=== PATIENT | male | born 1935 | race Caucasian/White ===

== ENCOUNTER 2017-12-24 10:30 | Observation (INO) ==
--- NOTE | 2017-12-24 11:04 | Emergency Department Note ---
Disposition Clinical Impression: Hypoglycemia Pneumonia Qualifiers: Pneumonia type: due to unspecified organism Laterality: bilateral Lung location : lower lobe of lung Qualified Code(s): J18.9 - Pneumonia, unspecified organism Disposition: Admitted As Inpatient Condition: Good Time of Disposition: 12:49 General Adult HPI - General Chief complaint: ED Altered Mental Status Stated complaint: hypoglycemia Time Seen by Provider: 12/24/17 10:32 Source: patient, EMS Mode of arrival: EMS Limitations: no limitations Nursing Notes Reviewed: Yes Vital Signs Reviewed: Yes - History of Present Illness HPI Narrative: Patient is an 82-year-old male that presents to the emergency department for hypoglycemia. He states that he was at home and is blood glucose was 38. EMS states that family members called due to the patient becoming agitated and somewhat aggressive towards them and members. State that when they arrived he did not want to take any of the anti-hypoglycemic medications. There were eventually able to give him some oral glucose as well as glucagon. They stated that his blood glucose did not initially go up very much however after getting him into the squad his blood glucose was around 120 to 130 and they felt that it was best for him to still come to the emergency department. At this time patient states that he feels like he is back to his baseline and has no chest pain, shortness of breath, abdominal pain, numbness weakness or tingling. Pain Scale: 0 - Related Data Previous Rx's Medication Instructions Recorded Ciprofloxacin OPTH Soln [Ciloxan 2 drop BOTH EYES Q4HR #1 bottle 11/19/17 OPTH Soln] Allergies Allergy/AdvReac Type Severity Reaction Status Date / Time clopidogrel [From Plavix] Allergy See Verified 10/17/16 03:43 Comments phenobarbital Allergy See Verified 10/17/16 03:43 Comments Past Medical History - Past Medical History Medical history: Reports: CHF, coronary artery disease, DVT, diabetes, hyperlipidemia, hypertension, myocardial infarction, peripheral artery disease, renal disease Surgical history: Reports: angioplasty/stent, appendectomy, cholecystectomy, hip replacement, orthopedic, other Psychiatric history: Reports: anxiety, depression - Social History Smoking Status: Never smoker Smokeless Tobacco Status: Yes Alcohol use: Reports: none Drug use: Reports: none Physical Exam - General Limitations: no limitations General appearance: alert Course Vital Signs Temperature 97.6 F 12/24/17 10:33 Pulse Rate 80 12/24/17 10:33 Respiratory Rate 16 12/24/17 10:33 Blood Pressure 128/74 12/24/17 10:33 O2 Sat by Pulse Oximetry 96 12/24/17 10:33 Temperature 97.6 F 12/24/17 10:33 Pulse Rate 82 12/24/17 12:15 Respiratory Rate 16 12/24/17 12:15 Blood Pressure 127/87 12/24/17 12:15 O2 Sat by Pulse Oximetry 96 12/24/17 12:15 Oxygen Delivery Oxygen Delivery Room Air Medical Decision Making - MDM Narrative Medical decision making narrative: We have obtained a CBC, BMP, chest x-ray and and a repeat blood glucose. The patient's repeat blood glucose was 125. Emergency department. The patient does have a possible pneumonia on chest x-ray. The patient will be started on Levaquin and need to be admitted to the hospital. The patient had an elevated white blood cell count of 11.3. Patient did have a wound that is healing on his right lower extremity. This does not appear to be infected at this time. The patient will need to be admitted to the hospital for further evaluation and management of his pneumonia. The patient's hypoglycemia has resolved. The emergency department. There is no evidence of infection on urinalysis at this time. I called and spoke with the hospitalist and they have accepted the patient to their service. The patient will be admitted at this time. - Medical Records Medical records reviewed: Yes I reviewed the patient's medical records. - Lab Data Lab results reviewed: Yes I reviewed the patient's lab results. Result diagrams: 12/24/17 11:12 12/24/17 11:12 Lab Results 12/24/17 12/24/17 12/24/17 Range/Units 10:34 11:12 11:12 WBC 11.3 H (4.3-11.1) K/mcL RBC 4.37 (4.19-5.50) M/mcL Hgb 11.4 L (12.9-16.9) g/dL Hct 37.0 L (37.5-50.1) % MCV 84.7 (83.0-100.0) fL MCH 26.1 L (28.0-33.3) pg MCHC 30.8 L (31.6-35.5) g/dL RDW 21.7 H (11.5-14.5) % Plt Count 273 (140-400) K/mcL MPV 9.6 (9.4-12.4) fL Immature Gran % 0.3 (0-4) % Seg Neutrophils % 75.5 % Lymphocytes % 14.1 % Monocytes % 7.5 % Eosinophils % 2.2 % Basophils % 0.4 % Neutrophils # 8.5 (1.6-8.9) K/mcL Lymphocytes # 1.6 (0.6-4.6) K/mcL Monocytes # 0.9 (0.0-1.3) K/mcL Eosinophils # 0.3 (0.0-0.6) K/mcL Basophils # 0.0 (0.0-0.2) K/mcL Immature Plt Fraction 3.4 (1.1-6.1) % Sodium 135 L (136-145) mEq/L Potassium 3.9 (3.5-5.1) mEq/L Chloride 101 (98-107) mEq/L Carbon Dioxide 30 H (23-29) mEq/L BUN 24 H (8-23) mg/dL Creatinine 1.33 H (0.70-1.30) mg/dL Est GFR ( Amer) > 60 (> 60) Est GFR (Non-Af Amer) 51 L (> 60) BUN/Creatinine Ratio 18 (6-26) Glucose 167 H (70-105) mg/dL POC Glucose 125 H (58-89) Calculated Osmolality 288 (280-300) Calcium 8.4 L (8.6-10.3) mg/dL Urine Color (Yellow) Urine Clarity (Clear) Urine pH (5.0-8.0) pH Units Ur Specific [place] (1.010-1.025) Urine Protein (Neg-Trace) mg/dL Urine Glucose (UA) (Normal) mg/dL Urine Ketones (Negative) mg/dL Urine Blood (Negative) Urine Nitrite (Negative) Urine Bilirubin (Negative) Urine Urobilinogen (Normal) mg/dL Ur Leukocyte Esterase (Negative) Ur Culture Indicated? (NO) 12/24/17 Range/Units 11:58 WBC (4.3-11.1) K/mcL RBC (4.19-5.50) M/mcL Hgb (12.9-16.9) g/dL Hct (37.5-50.1) % MCV (83.0-100.0) fL MCH (28.0-33.3) pg MCHC (31.6-35.5) g/dL RDW (11.5-14.5) % Plt Count (140-400) K/mcL MPV (9.4-12.4) fL Immature Gran % (0-4) % Seg Neutrophils % % Lymphocytes % % Monocytes % % Eosinophils % % Basophils % % Neutrophils # (1.6-8.9) K/mcL Lymphocytes # (0.6-4.6) K/mcL Monocytes # (0.0-1.3) K/mcL Eosinophils # (0.0-0.6) K/mcL Basophils # (0.0-0.2) K/mcL Immature Plt Fraction (1.1-6.1) % Sodium (136-145) mEq/L Potassium (3.5-5.1) mEq/L Chloride (98-107) mEq/L Carbon Dioxide (23-29) mEq/L BUN (8-23) mg/dL Creatinine (0.70-1.30) mg/dL Est GFR ( Amer) (> 60) Est GFR (Non-Af Amer) (> 60) BUN/Creatinine Ratio (6-26) Glucose (70-105) mg/dL POC Glucose (58-89) Calculated Osmolality (280-300) Calcium (8.6-10.3) mg/dL Urine Color Yellow (Yellow) Urine Clarity Clear (Clear) Urine pH 6.5 (5.0-8.0) pH Units Ur Specific [place] 1.014 (1.010-1.025) Urine Protein Negative (Neg-Trace) mg/dL Urine Glucose (UA) Normal (Normal) mg/dL Urine Ketones Negative (Negative) mg/dL Urine Blood Negative (Negative) Urine Nitrite Negative (Negative) Urine Bilirubin Negative (Negative) Urine Urobilinogen Normal (Normal) mg/dL Ur Leukocyte Esterase Negative (Negative) Ur Culture Indicated? NO (NO) - Radiology Data Radiology results reviewed: Yes I reviewed the patient's radiology results. Chest X-Ray 12/24/17 11:05 IMPRESSION: 1. Interval appearance of bibasilar opacities and small right effusion. Differential considerations include atelectasis or infection. D/ / Lila Rojas MD / Lila Rojas MD Interpreting Provider: Lila Rojas MD Attestation Statement - Attestation Attestation: I, Lexa Gonzalez DO, examined this patient [id number] and my medical decision-making was reviewed with Dr. Jhon Townsend, Resident Physician. I agree with the documented findings, disposition and treatment plan as described except to the extent set forth below. Please see my progress notes for details. 82-year-old male presents to the emergency room with complaint of hypoglycemia. Patient has had a cough and congestion over the last week. Currently is denying any chest pain shortness of breath headache vision changes nausea vomiting or diarrhea. Denies any any use of his insulin medication this morning. He did not check his glucose prior to getting out. Patient did not eat. Patient was given glucagon and dextrose in transit by EMS and his arrival blood glucose is 139. Patient is mentating at this time. Actively he is denying any other symptoms or complaints. Lungs sound clear at this point heart is regular abdomen is soft. He does have a healing wound on his right medial aspect of the calf. The patient has no other complaints or symptoms this time for screening laboratory chest x-ray CBC chemistry and urinalysis along with influenza swab. These are all negative patient will be allowed and then disposition will most likely be home. Patient is stable resting comfortably in the bed. Disposition to be determined. See detailed documentation of the physical exam, medical intervention, medical decision- making and disposition in the resident physician's note. 1250 Patient found to have bilateral pleural effusions and possible infiltrate. Antibiotic regimen will be started. This could be exacerbating issue causing his hypoglycemia has morning. Patient has been describing a cough with productive sputum. Patient will be admitted for symptom control cholesterol and the most likely discharged home with recommendation for antibiotics and symptomatic control. Conversation was had with the hospitalist by the Resident physician. Patient stable at the time of admission. no critical care was applied to this treatment course
[2017-12-24 11:18] LABS: Basophils % 0.4 %; Eosinophils # 0.3 K/mcL (0.0-0.6); Eosinophils % 2.2 %; Hemoglobin 11.4 g/dL (12.9-16.9); Immature Granulocytes % 0.3 % (0-4); Immature Platelets 3.4 % (1.1-6.1); Lymphocytes # 1.6 K/mcL (0.6-4.6); Lymphocytes % 14.1 %; Mean Corpuscular HGB Conc 30.8 g/dL (31.6-35.5); Mean Corpuscular Hemoglobin 26.1 pg (28.0-33.3); Mean Corpuscular Volume 84.7 fL (83.0-100.0); Mean Platelet Volume 9.6 fL (9.4-12.4); Monocytes # 0.9 K/mcL (0.0-1.3); Monocytes % 7.5 %; Neutrophils # 8.5 K/mcL (1.6-8.9); Platelet Count 273 K/mcL (140-400); Red Blood Count 4.37 M/mcL (4.19-5.50); Red Cell Distribution Width 21.7 % (11.5-14.5); Segmented Neutrophils % 75.5 %
[2017-12-24 11:39] LABS: BUN/Creatinine Ratio 18 (6-26); Blood Urea Nitrogen 24 mg/dL (8-23); Calcium 8.4 mg/dL (8.6-10.3); Carbon Dioxide 30 mEq/L (23-29); Chloride 101 mEq/L (98-107); Glucose 167 mg/dL (70-105); Osmolality,Calculated 288 (280-300); Potassium 3.9 mEq/L (3.5-5.1); Sodium 135 mEq/L (136-145); eGFR For African Americans > 60 (> 60); eGFR For Non-African Americans 51 (> 60)
[2017-12-24 12:07] LABS: Bilirubin,Urine Negative (Negative); Blood,Urine Negative (Negative); Clarity,Urine Clear (Clear); Color,Urine Yellow (Yellow); Glucose,Urine (UA) Normal (Normal); Ketones,Urine Negative (Negative); Leukocyte Esterase,Urine Negative (Negative); Nitrite,Urine Negative (Negative); PH,Urine 6.5 pH Units (5.0-8.0); Protein,Urine Negative (Neg-Trace); Specific Gravity,Urine 1.014 (1.010-1.025); Urobilinogen,Urine Normal (Normal)
[2017-12-24] MEDS ORDERED: Levofloxacin 750 MG/150 ML 750 MG/150 ML BAG IVPB ONE (12:18)
[2017-12-24] MEDS ORDERED: traMADol 50 MG TABLET PO PRN (13:22)
[2017-12-24] MEDS ORDERED: Naloxone 0.4 MG/ML INJ IVP PRN (13:24)
[2017-12-24] MEDS ORDERED: Dextrose Gel 15 GM/37.5 ML TUBE PO PRN ×2 (13:25)
[2017-12-24] MEDS ORDERED: *HR* Dextrose 50 % in Water (Syg) 50 ML SYRINGE IVP PRN (13:25)
[2017-12-24] MEDS ORDERED: D5% in Water 1,000 ML IVC PRN (13:25)
--- NOTE | 2017-12-24 13:29 | Internal Med History&Physical ---
<Vance Langley J - Last Filed: 12/24/17 13:27> Date of Encounter: 12/24/17 Time of Encounter: 13:27 Assessment and Plan (1) Pneumonia Current visit: Yes Status: Acute ASSESSMENT: - Community aquired PNA. Productive cough throughout the last week, PNA on CXR with bibasilar airspace opacities. Low risk for aspiration, eating during examination without difficulty. No respiratory distress noted - Antibiotics, Levaquin - CBC, BMP in AM - Duonebs Q4h vic - Heparin 5000 U SQ BID - Respiratory support per NC PRN, stable on RA at this time - Continuous Spo2 monitoring Qualifiers: Pneumonia type: due to unspecified organism Laterality: bilateral Lung location: lower lobe of lung Qualified Code(s): J18.9 - Pneumonia, unspecified organism (2) Hypoglycemia Current visit: Yes Status: Resolved Resolved prior to arrival. He does not know his insulin dosages and appears to have educational deficits of his dose and insulin use. -Consult educator senior clinical -diabetic diet (3) HLD (hyperlipidemia) Current visit: Yes Status: Acute Continue statin Qualifiers: Hyperlipidemia type: unspecified Qualified Code(s): E78.5 - Hyperlipidemia , unspecified (4) CAD (coronary artery disease) Current visit: Yes Status: Acute Continue ASA, statin, eliquis Qualifiers: Qualified Code(s): I25.10 - Atherosclerotic heart disease of [place] coronary artery without angina pectoris (5) DM (diabetes mellitus) Current visit: Yes Status: Acute Sliding scale insulin coverage Qualifiers: Diabetes mellitus type: type 2 Diabetes mellitus complication status: with unspecified complications Diabetes mellitus custodial insulin use: with custodial use Qualified Code(s): E11.8 - Type 2 diabetes mellitus with unspecified complications; Z79.4 - jail (current) use of insulin; 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 Salas is a 82 year old male with a PMH of CHF, CAD, DVT, DM, HLD, HTN, ND, PAD, and CKD who presents to [facility] today with following an episode of hypoglycemia this morning. He reports that his family noticed that he was agitated. His glucose was checked and found to be 38. He was given glucose an EMS was called and brought him to the ED. His glucose was 167 per BMP. Incidental PNA was found on CXR. He does endorse a cough productive of clear sputum over the last week. He denies any fevers, chills, shortness of breath, CP, N/V/D, or abdominal pain. He is being admitted for closer monitoring of his blood glucose and for IV ATB treatment of PNA. Past Med Surg Social Fam HX - Past Medical History Medical history: CHF, coronary artery disease, DVT, diabetes, hyperlipidemia, hypertension, myocardial infarction, peripheral artery disease, renal disease Psychiatric history: anxiety, depression - Past Surgical History Surgical History: angioplasty/stent, appendectomy, cholecystectomy, hip replacement, orthopedic, other - Social History Smoking Status: Never smoker Smokeless Tobacco Status: Yes Alcohol use: none Drug use: none - Additional Family History Additional family history: noncontributory Internal Medicine - H&P: Meds Apixaban [Eliquis] 5 mg PO DAILY 12/24/17 [History] Aspirin [Lo-Dose Aspirin EC] 81 mg PO DAILY 12/24/17 [History] Carvedilol [Carvedilol] 3.125 mg PO BID 12/24/17 [History] Citalopram [CeleXA] 20 mg PO DAILY 12/24/17 [History] Ferrous Sulfate [Iron] 325 mg PO DAILY 12/24/17 [History] Finasteride [Proscar] 5 mg PO DAILY 12/24/17 [History] Furosemide [Lasix] 40 mg PO BID 12/24/17 [History] Insulin LISPRO [HumaLOG] 12/24/17 [History] Simvastatin [Zocor] 40 mg PO HS 12/24/17 [History] Tamsulosin [Flomax] 0.4 mg PO DAILY 12/24/17 [History] Tramadol HCl [Ultram] 50 mg PO BID PRN 12/24/17 [History] 3 Allergy/AdvReac Type Severity Reaction Status Date / Time clopidogrel [From Plavix] Allergy See Verified 10/17/16 03:43 Comments phenobarbital Allergy See Verified 10/17/16 03:43 Comments All Systems PM: A 10-system review of systems was performed and is negative for pertinent findings except as documented above in the HPI. - Constitutional Constitutional: no chills, no fever(s), no night sweats - EENT Eyes: no change in vision, no discharge, no pain, no photophobia Ears: no ear discharge, no ear pain, no tinnitus Nose, mouth and throat: no dysphagia, no nasal discharge, no neck pain, no sore throat - Cardiovascular Cardiovascular ROS IM: no chest pain, no diaphoresis, no dyspnea, no lightheadedness, no palpitations, no syncope - Respiratory Respiratory: as per HPI, cough, no dyspnea, no hemoptysis, no wheezing, no pain on inspiration, no chest congestion, no excessive phlegm production, no change in phlegm color, no pain with cough - Gastrointestinal Gastrointestinal: no abdominal pain, no diarrhea, no hematemesis, no hematochezia, no melena, no nausea, no vomiting - Musculoskeletal Musculoskeletal ROS IM: no numbness, no tingling - Integumentary Integumentary IM: no rash, no unusual bruising - Neurological Neurological ROS: no confusion, no convulsions, no focal weakness, no numbness, no tingling, no tremor(s) - Hematologic/Lymphatic Hematologic/Lymphatic: no easy bruising - Constitutional Vitals: Temp Pulse Resp BP Pulse Ox 97.6 F 82 16 127/87 96 12/24/17 10:33 12/24/17 12:15 12/24/17 12:15 12/24/17 12:15 12/24/17 12:15 General appearance: Present: cooperative, A&O X 3, no acute distress, answers questions appropriately - Head Head exam: Present: atraumatic, normocephalic - Eye Eye exam: Present: PERRL, conjuntiva pink, sclera anicteric Pupils: Present: PERRL - Neck Neck exam general surgery: Present: supple, trachea midline. Absent: lymphadenopathy - Respiratory Respiratory exam: Present: CTAB, rhonchi. Absent: accessory muscle use, rales, wheezes - Cardiovascular Cardiovascular exam: Present: RRR, +S1, +S2. Absent: diastolic murmur, gallop, rubs, systolic murmur - GI/Abdominal GI/Abdominal exam: Present: normal bowel sounds, soft, no peritoneal signs. Absent: distended, tenderness - Extremities Exam Extremities exam: Present: warm, radial pulses palpable and symmetrical. Absent : calf tenderness, cyanotic, pedal edema - Neurological Exam Neurological exam: Present: CN II-XII intact, oriented X3, no focal deficits. Absent: pronater drift, facial droop, speech deficit - Skin Skin exam: Present: dry, intact Internal Med - H&P Results - Labs CBC & Chem 7: 12/24/17 11:12 12/24/17 11:12 - Impressions Impressions Chest X-Ray 12/24/17 11:05 IMPRESSION: 1. Interval appearance of bibasilar opacities and small right effusion. Differential considerations include atelectasis or infection. D/ / 12/24/2017 12:30:27 Lila Rojas MD / [email or web address] Interpreting Provider: Lila Rojas MD <Masoud Ramirez T - Last Filed: 12/25/17 07:57> Date of Encounter: 12/25/17 Internal Medicine - H&P: HPI History of present illness: Mr. Salas is a 82 year old male All Systems PM: A 10-system review of systems was performed and is negative for pertinent findings except as documented above in the HPI. - Constitutional Vitals: Temp Pulse Resp BP Pulse Ox 98.9 F 77 16 134/62 97 12/25/17 06:49 12/25/17 06:49 12/25/17 06:49 12/25/17 06:49 12/25/17 06:49 Internal Med - H&P Results - Labs CBC & Chem 7: 12/25/17 06:25 12/25/17 06:25 Labs: Short CBC 12/25/17 Range/Units 06:25 WBC 6.8 (4.3-11.1) K/mcL Hgb 11.9 L (12.9-16.9) g/dL Hct 38.2 (37.5-50.1) % Plt Count 283 (140-400) K/mcL BMP 12/25/17 06:25 Sodium 136 Potassium 3.9 Chloride 101 Carbon Dioxide 30 H BUN 23 Creatinine 1.24 Glucose 69 L Calcium 9.1 - Attending Attestation The patient was independently examined and his available records and tests were reviewed. I agree with the route carrier A&P. 82 yr old man admitted for hypglycemia and during routine ER w/u found to have infiltrate vs atelectasis on CXR. Lungs clear and not sob nor requiring supplemental O2. Nl WBC and afebrile. The patient doubtful he has PNA and so am I. He need Diabetic mgt education but likely can go home after that with or w/o PO antibiotics.
[2017-12-24] MEDS: Ipratropium/Albuterol Neb 3 ML IH SCH ×3 (16:32→23:47)
[2017-12-24] MEDS: Insulin LISPRO 300 UNITS/3 ML VIAL SQ SCH ×2 (16:57→21:09)
[2017-12-24] MEDS ORDERED: *HR* Heparin 5,000 UNIT/ML VIAL SQ SCH (18:00)
[2017-12-24] MEDS: Furosemide 40 MG TABLET PO SCH (20:38)
[2017-12-25] MEDS: Ipratropium/Albuterol Neb 3 ML IH SCH ×6 (04:07→23:19)
[2017-12-25 06:44] LABS: Hematocrit 38.2 % (37.5-50.1); Hemoglobin 11.9 g/dL (12.9-16.9); Mean Corpuscular HGB Conc 31.2 g/dL (31.6-35.5); Mean Corpuscular Hemoglobin 26.1 pg (28.0-33.3); Mean Corpuscular Volume 83.8 fL (83.0-100.0); Mean Platelet Volume 9.9 fL (9.4-12.4); Platelet Count 283 K/mcL (140-400); Red Blood Count 4.56 M/mcL (4.19-5.50); Red Cell Distribution Width 21.6 % (11.5-14.5)
[2017-12-25 07:08] LABS: BUN/Creatinine Ratio 19 (6-26); Blood Urea Nitrogen 23 mg/dL (8-23); Calcium 9.1 mg/dL (8.6-10.3); Carbon Dioxide 30 mEq/L (23-29); Chloride 101 mEq/L (98-107); Glucose 69 mg/dL (70-105); Osmolality,Calculated 284 (280-300); Potassium 3.9 mEq/L (3.5-5.1); Sodium 136 mEq/L (136-145); eGFR For African Americans > 60 (> 60); eGFR For Non-African Americans 56 (> 60)
[2017-12-25] MEDS: Insulin LISPRO 300 UNITS/3 ML VIAL SQ SCH ×4 (08:25→21:48)
[2017-12-25] MEDS ORDERED: Levofloxacin 750 MG/150 ML 750 MG/150 ML BAG IVPB SCH (09:00)
[2017-12-25] MEDS: Finasteride 5 MG TABLET PO SCH (09:18)
[2017-12-25] MEDS: Furosemide 40 MG TABLET PO SCH ×2 (09:18→21:48)
[2017-12-25] MEDS: Aspirin Enteric Coated 81 MG Tablet PO SCH (09:18)
[2017-12-25] MEDS: Apixaban 5 MG TABLET PO SCH (09:18)
--- NOTE | 2017-12-25 11:38 | Internal Med Progress Note ---
Date of Encounter: 12/25/17 Time of Encounter: 09:15 - Subjective Interval history: HPI: 82 year old man with a PMH of CHF, CAD, DVT, DM, HLD, HTN, [place], PAD, and CKD who presents to [facility] today with following an episode of hypoglycemia this morning. He reports that his family noticed that he was agitated. His glucose was checked and found to be 38. He was given glucose an EMS was called and brought him to the ED. His glucose was 167 per BMP. Incidental PNA was found on CXR. He does endorse a cough productive of clear sputum over the last week. He denies any fevers, chills, shortness of breath, CP, N/V/D, or abdominal pain. He is being admitted for closer monitoring of his blood glucose and for IV ATB treatment of PNA. 1. Influenza A positive: Supportive care Tamiflu started Droplet precautions 2. Community Aquired Pneumonia - Community aquired PNA. Productive cough throughout the last week, PNA on CXR with bibasilar airspace opacities. - Continue Levaquin and Duonebs Q4h vic - Follow B. Cx 3. DM-II on insulin with Hypoglycemia Intermittently not eating likely due to acute illness Also poor insight into DM Consult clinical unit educator SSI with meals and bedtime 4. CAD (coronary artery disease) Continue aspirin, BB, statin - Constitutional Vitals: Temp Pulse Resp BP Pulse Ox 98.5 F 83 14 140/82 97 12/25/17 11:15 12/25/17 11:15 12/25/17 11:29 12/25/17 11:15 12/25/17 11:29 General appearance: Present: cooperative, A&O X 3, no acute distress, answers questions appropriately - Head Head exam: Present: atraumatic, normocephalic - Eye Eye exam: Present: EOMI, PERRL, conjuntiva pink, sclera anicteric Pupils: Present: PERRL - Neck Neck exam general surgery: Present: supple, trachea midline. Absent: lymphadenopathy - Respiratory Respiratory exam: Present: CTAB. Absent: accessory muscle use, rales, rhonchi, wheezes - Cardiovascular Cardiovascular exam: Present: RRR, +S1, +S2. Absent: diastolic murmur, gallop, rubs, systolic murmur - GI/Abdominal GI/Abdominal exam: Present: normal bowel sounds, soft, no peritoneal signs. Absent: distended, tenderness - Extremities Exam Extremities exam: Present: warm, radial pulses palpable and symmetrical. Absent : calf tenderness, cyanotic, pedal edema - Neurological Exam Neurological exam: Present: CN II-XII intact, oriented X3, no focal deficits. Absent: pronater drift, facial droop, speech deficit - Skin Skin exam: Present: dry, intact Internal Medicine: Result - Labs CBC & Chem 7: 12/25/17 06:25 12/25/17 06:25 Labs: Short CBC 12/25/17 Range/Units 06:25 WBC 6.8 (4.3-11.1) K/mcL Hgb 11.9 L (12.9-16.9) g/dL Hct 38.2 (37.5-50.1) % Plt Count 283 (140-400) K/mcL BMP 12/25/17 06:25 Sodium 136 Potassium 3.9 Chloride 101 Carbon Dioxide 30 H BUN 23 Creatinine 1.24 Glucose 69 L Calcium 9.1 Consult Discharge Plan - Plan Referrals: Philip Tillman MD [Primary Care Provider] -
[2017-12-26] MEDS: Ipratropium/Albuterol Neb 3 ML IH SCH ×3 (03:50→12:09)
--- NOTE | 2017-12-26 09:08 | Internal Med Progress Note ---
Date of Encounter: 12/26/17 Time of Encounter: 09:07 - Assessment and plan (1) Community acquired bacterial pneumonia Current Visit: Yes Status: Acute Assessment and plan: PNA on CXR with bibasilar airspace opacities. Low risk for aspiration, eating during examination without difficulty. No respiratory distress noted White count was initially elevated at 11.3, has since decreased to 6.8. Plan: - Levaquin 750 mg IV daily - Duonebs Q4h vic - Continuous Spo2 monitoring (2) DM (diabetes mellitus) Current Visit: No Status: Acute Assessment and plan: Sliding scale insulin coverage -Glucose this morning was 213. Plan: -HbA1C had been ordered -ADA Diet Qualifiers: Diabetes mellitus type: type 2 Diabetes mellitus complication status: with unspecified complications Diabetes mellitus long term care phlebotomist insulin use: with fci use Qualified Code(s): E11.8 - Type 2 diabetes mellitus with unspecified complications; Z79.4 - long term care phlebotomist (current) use of insulin; Z79.4 - intermediate ( current) use of insulin; Z79.4 - intermediate (current) use of insulin; Z79.4 - intermediate (current) use of insulin (3) CAD (coronary artery disease) Current Visit: No Status: Acute Qualifiers: Qualified Code(s): I25.10 - Atherosclerotic heart disease of [place] coronary artery without angina pectoris (4) HTN (hypertension) Current Visit: No Status: Acute (5) DVT prophylaxis Current Visit: No Status: Acute - Subjective Interval history: Patient is an 82-year-old male with a PMH of CHF, coronary artery disease, DVT, diabetes, hyperlipidemia, hypertension, myocardial infarction, peripheral artery disease, renal disease who presented to the ED on 12/24/17 for hypoglycemia. He states that he was at home and is blood glucose was 38. EMS states that family members called due to the patient becoming agitated and somewhat aggressive towards them and members. Stated that when they arrived he did not want to take any of the anti-hypoglycemic medications. There were eventually able to give him some oral glucose as well as glucagon. They stated that his blood glucose did not initially go up very much however after getting him into the squad his blood glucose was around 120 to 130 and they felt that it was best for him to still come to the emergency department. At this time patient states that he feels like he is back to his baseline and has no chest pain, shortness of breath, abdominal pain, numbness weakness or tingling. Upon arrival, all vital signs were within normal limits. CXR demonstrated the following: Interval appearance of bibasilar opacities and small right effusion. The patient's repeat blood glucose was 125. Patient was started on levaquin. White count was elevated at 11.3. Patient did have a wound that is healing on his right lower extremity; did not appear to be infected. There is no evidence of infection on urinalysis at this time. - Constitutional Vitals: Temp Pulse Resp BP Pulse Ox 98.3 F 81 16 114/68 93 12/26/17 08:24 12/26/17 08:24 12/26/17 08:24 12/26/17 08:24 12/26/17 08:24 General appearance: Present: cooperative, A&O X 3, no acute distress, answers questions appropriately - Head Head exam: Present: atraumatic, normocephalic - Eye Eye exam: Present: PERRL, conjuntiva pink, sclera anicteric Pupils: Present: PERRL - Neck Neck exam general surgery: Present: supple, trachea midline. Absent: lymphadenopathy - Respiratory Respiratory exam: Present: CTAB. Absent: accessory muscle use, rales, rhonchi, wheezes - Cardiovascular Cardiovascular exam: Present: RRR, +S1, +S2. Absent: diastolic murmur, gallop, rubs, systolic murmur - GI/Abdominal GI/Abdominal exam: Present: normal bowel sounds, soft, no peritoneal signs. Absent: distended, tenderness - Extremities Exam Extremities exam: Present: warm, radial pulses palpable and symmetrical. Absent : calf tenderness, cyanotic, pedal edema - Neurological Exam Neurological exam: Present: CN II-XII intact, oriented X3, no focal deficits. Absent: pronater drift, facial droop, speech deficit - Skin Skin exam: Present: dry, intact Internal Medicine: Result - Labs CBC & Chem 7: 12/25/17 06:25 12/25/17 06:25 Consult Discharge Plan - Plan Referrals: Philip Tillman MD [Primary Care Provider] -
[2017-12-26] MEDS: Apixaban 5 MG TABLET PO SCH (09:09)
[2017-12-26] MEDS: Finasteride 5 MG TABLET PO SCH (09:09)
[2017-12-26] MEDS: Aspirin Enteric Coated 81 MG Tablet PO SCH (09:09)
[2017-12-26] MEDS: Furosemide 40 MG TABLET PO SCH (09:09)
[2017-12-26] MEDS: Insulin LISPRO 300 UNITS/3 ML VIAL SQ SCH ×2 (09:10→13:49)
[2017-12-26 09:42] LABS: Hemoglobin A1C 7.8 %
[2017-12-26 13:05] VITALS: BP 100/59
--- NOTE | 2017-12-26 14:31 | Discharge Summary ---
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 drier operator (current) use of insulin; Z79.4 - buttermilk drier operator ( current) use of insulin; Z79.4 - buttermilk drier operator (current) use of insulin; Z79.4 - long-term (current) use of insulin (3) CAD (coronary artery disease) Priority: Secondary Status: Acute Qualifiers: Qualified Code(s): I25.10 - Atherosclerotic heart disease of [place] coronary artery without angina pectoris (4) HTN (hypertension) Priority: Secondary Status: Acute Qualifiers: Qualified Code(s): I10 - Essential (primary) hypertension (5) DVT prophylaxis Priority: Secondary Status: Acute - Discharge Medications Prescriptions: Levofloxacin [Levaquin] 750 mg PO Q48H #5 tablet Home Medications: Apixaban [Eliquis] 5 mg PO BID 12/24/17 [History] Aspirin [Lo-Dose Aspirin EC] 81 mg PO DAILY 12/24/17 [History] Carvedilol [Carvedilol] 3.125 mg PO BID 12/24/17 [History] Citalopram [CeleXA] 20 mg PO DAILY 12/24/17 [History] Ferrous Sulfate [Iron] 325 mg PO DAILY 12/24/17 [History] Finasteride [Proscar] 5 mg PO DAILY 12/24/17 [History] Furosemide [Lasix] 40 mg PO BID 12/24/17 [History] Insulin LISPRO [HumaLOG] 8 units SQ TIDAC 12/24/17 [History] Simvastatin [Zocor] 40 mg PO HS 12/24/17 [History] Tamsulosin [Flomax] 0.4 mg PO DAILY 12/24/17 [History] Tramadol HCl [Ultram] 50 mg PO BID PRN 12/24/17 [History] Insulin Glargine,Hum.rec.anlog [Deannaglsoy Singhpen U-100] 22 unit SQ BID 12/26/17 [History] Levofloxacin [Levaquin] 750 mg PO Q48H #5 tablet 12/26/17 [Rx] Allergies/Adverse Reactions: 3 Allergy/AdvReac Type Severity Reaction Status Date / Time clopidogrel [From Plavix] Allergy See Verified 10/17/16 03:43 Comments phenobarbital Allergy See Verified 10/17/16 03:43 Comments Date of admission: 12/24/17 12:45 Primary care physician: Philip Tillman MD Consults: 12/24/17 13:41 Consult to Diabetes Education [CONS] Routine Comment: Reason for Consult: eductional deficits of insulin dosage and appropriate usage 12/25/17 14:48 Consult to Physical Therapy [CONS] Routine Comment: Evaluate, develop and implement POC Reason for Consult: ECF vs HH 12/25/17 14:49 Consult to Occupational Therapy [CONS] Routine Comment: Evaluate, develop and implement POC Reason for Consult: ECF vs HH Discharging clinician: Last Yates Anticipated date of discharge: 12/26/17 - Patient Status Disposition: Home, Self-Care Condition: Good Overall status at discharge: patient is progressing back to baseline - Discharge Instructions Instructions: Diabetes Mellitus Type 2 in Adults (DC) Follow Up With: Philip Tillman MD [Primary Care Provider] - 12/28/17 10:15 am Additional Instructions: Follow up with PCP within the next week - Diet and Activity Activity: increase activity as tolerated Diet: advance to your usual diet Hospital course: Patient is an 82-year-old male with a PMH of CHF, coronary artery disease, DVT, diabetes, hyperlipidemia, hypertension, myocardial infarction, peripheral artery disease, renal disease who presented to the ED on 12/24/17 for hypoglycemia. He states that he was at home and is blood glucose was 38. EMS states that family members called due to the patient becoming agitated and somewhat aggressive towards them and members. Stated that when they arrived he did not want to take any of the anti-hypoglycemic medications. There were eventually able to give him some oral glucose as well as glucagon. They stated that his blood glucose did not initially go up very much however after getting him into the squad his blood glucose was around 120 to 130 and they felt that it was best for him to still come to the emergency department. At this time patient states that he feels like he is back to his baseline and has no chest pain, shortness of breath, abdominal pain, numbness weakness or tingling. Upon arrival, all vital signs were within normal limits. CXR demonstrated the following: Interval appearance of bibasilar opacities and small right effusion. The patient's repeat blood glucose was 125. Patient was started on levaquin. White count was elevated at 11.3. Patient did have a wound that is healing on his right lower extremity; did not appear to be infected. Patient was seen and examined at bedside this morning. Denies having cough or shortness of breath. Patient has no complaints at this time. Patient will be discharged on Levaquin for 5 more days, q48 hours. He will also follow up with his PCP within the next week. - Time Spent with Patient Total time spent providing and/or coordinating discharge services: Greater than 30 minutes (41 minutes) - Constitutional Vitals: Temp Pulse Resp BP Pulse Ox 97.6 F 93 16 100/59 97 12/26/17 12:10 12/26/17 12:10 12/26/17 12:10 12/26/17 12:10 12/26/17 12:10 General appearance: Present: cooperative, A&O X 3, no acute distress, answers questions appropriately - Head Head exam: Present: atraumatic, normocephalic - Eye Eye exam: Present: PERRL, conjuntiva pink, sclera anicteric Pupils: Present: PERRL - Neck Neck exam general surgery: Present: supple, trachea midline. Absent: lymphadenopathy - Respiratory Respiratory exam: Present: CTAB. Absent: accessory muscle use, rales, rhonchi, wheezes - Cardiovascular Cardiovascular exam: Present: RRR, +S1, +S2. Absent: diastolic murmur, gallop, rubs, systolic murmur - Neurological Exam Neurological exam: Present: CN II-XII intact, oriented X3, no focal deficits. Absent: pronater drift, facial droop, speech deficit - Skin Skin exam: Present: dry, intact <Laron Patel T - Last Filed: 12/26/17 15:17> Date of Encounter: 12/26/17 - Discharge Diagnosis (1) CHF (congestive heart failure) Priority: Secondary Status: Chronic Qualifiers: Heart failure type: systolic Heart failure chronicity: chronic Qualified Code(s): I50.22 - Chronic systolic (congestive) heart failure Date of admission: 12/24/17 12:45 Primary care physician: Philip Tillman MD Consults: 12/24/17 13:41 Consult to Diabetes Education [CONS] Routine Comment: Reason for Consult: eductional deficits of insulin dosage and appropriate usage 12/25/17 14:48 Consult to Physical Therapy [CONS] Routine Comment: Evaluate, develop and implement POC Reason for Consult: ECF vs HH 12/25/17 14:49 Consult to Occupational Therapy [CONS] Routine Comment: Evaluate, develop and implement POC Reason for Consult: ECF vs HH Hospital course: Mr. Salas is a 82 year old male - Time Spent with Patient Total time spent providing and/or coordinating discharge services: - Constitutional Vitals: Temp Pulse Resp BP Pulse Ox 97.6 F 93 16 100/59 97 12/26/17 12:10 12/26/17 12:10 12/26/17 12:10 12/26/17 12:10 12/26/17 12:10 - Attending Attestation Seen and evaluated at bedside Being managed for hypoglycemia and pneumonia Physical exam is unremarkable he is alert X3, chronic leg mck[place] wounds that are healed, patient states he is wheel chair bound Labs and Imaing reviewed He is at a higher risk of hypoglycemia hold insulin till PCP review, resume other home meds and discharge on levaquin. Early PCP appointment to be established Rest of details as in the resident physician's documentation
--- NOTE | 2017-12-26 15:06 | Physician Discharge Referral ---
Home Health/Hosp Referral Info Transfer to: Home Health Provider in Charge Post Discharge: PCP - Diagnosis (1) Community acquired bacterial pneumonia Priority: Primary Status: Acute (2) DM (diabetes mellitus) Priority: Secondary Status: Acute (3) CAD (coronary artery disease) Priority: Secondary Status: Acute (4) HTN (hypertension) Priority: Secondary Status: Acute (5) DVT prophylaxis Priority: Secondary Status: Acute - Respiratory Orders Smoking Cessation: Smoking cessation has been advised. For more information, call the [place] Tobacco Quit Line at 8-439-RCRY-NOW. - Diet/Nutrition Diet/Nutrition Orders: Regular Other Treatments: Levaquin 750 mg Q48 for the treatment of PNA - Transfer Medications Prescriptions: Levofloxacin [Levaquin] 750 mg PO Q48H #5 tablet Home Medications: Apixaban [Eliquis] 5 mg PO BID 12/24/17 [History] Aspirin [Lo-Dose Aspirin EC] 81 mg PO DAILY 12/24/17 [History] Carvedilol [Carvedilol] 3.125 mg PO BID 12/24/17 [History] Citalopram [CeleXA] 20 mg PO DAILY 12/24/17 [History] Ferrous Sulfate [Iron] 325 mg PO DAILY 12/24/17 [History] Finasteride [Proscar] 5 mg PO DAILY 12/24/17 [History] Furosemide [Lasix] 40 mg PO BID 12/24/17 [History] Insulin LISPRO [HumaLOG] 8 units SQ TIDAC 12/24/17 [History] Simvastatin [Zocor] 40 mg PO HS 12/24/17 [History] Tamsulosin [Flomax] 0.4 mg PO DAILY 12/24/17 [History] Tramadol HCl [Ultram] 50 mg PO BID PRN 12/24/17 [History] Insulin Glargine,Hum.rec.anlog [Basaglar Kwikpen U-100] 22 unit SQ BID 12/26/17 [History] Levofloxacin [Levaquin] 750 mg PO Q48H #5 tablet 12/26/17 [Rx] Allergies/Adverse Reactions: 3 Allergy/AdvReac Type Severity Reaction Status Date / Time clopidogrel [From Plavix] Allergy See Verified 10/17/16 03:43 Comments phenobarbital Allergy See Verified 10/17/16 03:43 Comments Certification: Further, I certify that my clinical findings support that this patient is homebound (i.e. absences from home require considerable and taxing effort and are for medical reasons or christian services or infrequently or short duration when for other reasons) because: Homebound Reason: Patient requires assistance of a person or device to safely leave home Attestation: My signature below is to certify that this patient is under my care and that I, or nurse practitioner, or a physician's assistant chief nursing officer working with me, has a face-to -face encounter with this patient.
[2017-12-26] MEDS ORDERED: Apixaban 5 MG TABLET PO SCH (21:00)
[2017-12-27] MEDS ORDERED: Levofloxacin 750 MG/150 ML 750 MG/150 ML BAG IVPB SCH (09:00)
== END 2017-12-26 15:42 | disposition home health service (06) ==
LOC: EMEROO 10:30 → 2ANU 10:30 → 3ANU 12:54
PROVIDERS: ADMIT Student in an Organized Health Care Education/Training Program; ATTEND Internal Medicine

== ENCOUNTER 2018-03-01 22:18 | Inpatient (IN) ==
[2018-03-01 22:51] LABS: Basophils % 0.2 %; Eosinophils # 0.6 K/mcL (0.0-0.6); Eosinophils % 6.4 %; Hematocrit 32.2 % (37.5-50.1); Hemoglobin 11.1 g/dL (12.9-16.9); Immature Granulocytes % 0.2 % (0-4); Lymphocytes # 1.4 K/mcL (0.6-4.6); Lymphocytes % 15.9 %; Mean Corpuscular HGB Conc 34.5 g/dL (31.6-35.5); Mean Corpuscular Hemoglobin 30.1 pg (28.0-33.3); Mean Corpuscular Volume 87.3 fL (83.0-100.0); Mean Platelet Volume 10.6 fL (9.4-12.4); Monocytes # 0.9 K/mcL (0.0-1.3); Monocytes % 9.8 %; Platelet Count 287 K/mcL (140-400); Red Blood Count 3.69 M/mcL (4.19-5.50); Red Cell Distribution Width 14.2 % (11.5-14.5); Segmented Neutrophils % 67.5 %
[2018-03-01 22:53] LABS: VBG HCO3 26 mEq/L (21-27); VBG PCO2 41 mmHg (41-51); VBG PO2 34 mmHg (25-50)
[2018-03-01 23:11] LABS: Alanine Aminotransferase 12 Units/L (7-52); Albumin 3.8 g/dL (3.5-5.7); Albumin/Globulin Ratio 1.2 (1.1-2.2); Alkaline Phosphatase 90 Units/L (34-104); Aspartate Amino Transferase 11 Units/L (13-39); BUN/Creatinine Ratio 17 (6-26); Bilirubin,Direct 0.3 mg/dL (0.0-0.2); Bilirubin,Indirect 0.8 mg/dL (0.0-1.2); Bilirubin,Total 1.1 mg/dL (0.3-1.0); Blood Urea Nitrogen 26 mg/dL (8-23); Calcium 9.1 mg/dL (8.6-10.3); Carbon Dioxide 24 mEq/L (23-29); Chloride 89 mEq/L (98-107); Globulin 3.3 g/dL (2.4-3.5); Glucose 474 mg/dL (70-105); Magnesium 2.2 mg/dL (1.6-2.6); Osmolality,Calculated 286 (280-300); Phosphorous 2.6 mg/dL (2.7-4.5); Potassium 4.1 mEq/L (3.5-5.1); Sodium 125 mEq/L (136-145); Total Protein 7.1 g/dL (6.4-8.9); Troponin I < 0.03 ng/mL (< 0.04); eGFR For African Americans 52 (> 60); eGFR For Non-African Americans 43 (> 60)
[2018-03-01] MEDS ORDERED: 0.9 % Sodium Chloride 500 ML IVC ONE (23:24)
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
[2018-03-02] MEDS ORDERED: Insulin LISPRO 300 UNITS/3 ML VIAL SQ ONE (00:40)
[2018-03-02 01:06] LABS: Bilirubin,Urine Negative (Negative); Blood,Urine Negative (Negative); Clarity,Urine Clear (Clear); Color,Urine Yellow (Yellow); Glucose,Urine (UA) >=1000 mg/dL (Normal); Ketones,Urine Negative (Negative); Leukocyte Esterase,Urine Negative (Negative); Nitrite,Urine Negative (Negative); PH,Urine 6.5 pH Units (5.0-8.0); Protein,Urine Negative (Neg-Trace); Specific Gravity,Urine 1.024 (1.010-1.025); Urobilinogen,Urine Normal (Normal)
--- NOTE | 2018-03-02 01:07 | Internal Med History&Physical ---
<Last Yates - Last Filed: 03/02/18 03:26> Date of Encounter: 03/02/18 Time of Encounter: 01:06 Internal Medicine - H&P: HPI Chief complaint: Hyperglycemia Admitted From: Home Plans for Post Hospital Care: Home History of present illness: Mr. Salas is an 83-year-old male who presented to [facility] on the evening of 03/01/18 after having outpatient lab work demonstrating a glucose level greater than 800. Patient was accompanied by son. Son stated that patient had not eaten in several days; reporting that his father was not hungry. Patient is a type I diabetic; is on short acting and long acting insulin. Patient has home health services to set up his medications, patient states that he takes his medications as I can. Patient reported that he was not hungry. Patient provided no further history. He denied having any fever, chills, difficulty breathing, shortness of breath cough,, nasal condition, abdominal pain, nausea, vomiting, diarrhea, chest pain, palpitations, edema, genitourinary issues, or other physical complaints. Patient is currently in a walking boot on his right foot. Son reported the patient had a fracture; pending CT. Has had no surgical intervention on his leg. Patient does not recall taking any insulin today. Upon arrival, patients blood pressure was elevated at 154/81. All other vital signs were within normal limits. Laboratory analysis was significant for the following: Sodium 125, B1 26 , creatinine 1.55, glucose 582, lactic acid 3.7, total bilirubin 1.1. In the ER , patient was given a one-time bolus of 500 mL normal saline, 5 units insulin Humalog subcutaneous. EKG has been ordered. Straight catheter ordered. Urinalysis obtained; results pending. Past medical history includes coronary artery disease, DVT, diabetes, hyperlipidemia, hypertension, myocardial infarction, peripheral artery disease, renal disease. Surgical history includes angioplasty/stent, appendectomy, cholecystectomy, hip replacement. Patient was seen and examined at bedside this morning. Denies any complaints at this time. Did not provide much history ; does not remember meal during the day or the use of insulin. Past Med Surg Social Fam HX - Past Medical History Medical history: CHF, coronary artery disease, DVT, diabetes, hyperlipidemia, hypertension, myocardial infarction, peripheral artery disease, renal disease Psychiatric history: anxiety, depression - Past Surgical History Surgical History: angioplasty/stent, appendectomy, cholecystectomy, hip replacement, orthopedic, other - Social History Smoking Status: Never smoker Smokeless Tobacco Status: Yes Alcohol use: none Drug use: none Internal Medicine - H&P: Meds Apixaban [Eliquis] 5 mg PO BID 12/24/17 [History] Aspirin [Lo-Dose Aspirin EC] 81 mg PO DAILY 12/24/17 [History] Carvedilol 3.125 mg PO BID 12/24/17 [History] Citalopram [CeleXA] 20 mg PO DAILY 12/24/17 [History] Ferrous Sulfate [Iron] 325 mg PO DAILY 12/24/17 [History] Finasteride [Proscar] 5 mg PO DAILY 12/24/17 [History] Furosemide [Lasix] 40 mg PO BID 12/24/17 [History] Insulin LISPRO [HumaLOG] 0 units SQ TIDAC 12/24/17 [History] Simvastatin [Zocor] 40 mg PO BID 12/24/17 [History] Tamsulosin [Flomax] 0.4 mg PO DAILY 12/24/17 [History] Tramadol HCl [Ultram] 50 mg PO BID 12/24/17 [History] Insulin DETEMIR [Levemir] 22 unit SQ BID 01/08/18 [History] Metoclopramide HCl [Metoclopramide HCl] 5 mg PO DAILY PRN 03/02/18 [History] 3 Allergy/AdvReac Type Severity Reaction Status Date / Time clopidogrel [From Plavix] Allergy See Verified 02/05/18 13:37 Comments phenobarbital Allergy See Verified 02/05/18 13:37 Comments All Systems PM: A 10-system review of systems was performed and is negative for pertinent findings except as documented above in the HPI. - Constitutional Constitutional: no chills, no fever(s), no night sweats - EENT Eyes: no change in vision, no discharge, no pain, no photophobia Ears: no ear discharge, no ear pain, no tinnitus Nose, mouth and throat: no dysphagia, no nasal discharge, no neck pain, no sore throat - Cardiovascular Cardiovascular ROS IM: no chest pain, no diaphoresis, no dyspnea, no lightheadedness, no palpitations, no syncope - Respiratory Respiratory: no cough, no dyspnea, no wheezing, no excessive phlegm production - Gastrointestinal Gastrointestinal: no abdominal pain, no diarrhea, no hematemesis, no hematochezia, no melena, no nausea, no vomiting - Musculoskeletal Musculoskeletal ROS IM: no numbness, no tingling - Integumentary Integumentary IM: no rash, no unusual bruising - Neurological Neurological ROS: no confusion, no convulsions, no focal weakness, no numbness, no tingling, no tremor(s) - Hematologic/Lymphatic Hematologic/Lymphatic: no easy bruising - Constitutional Vitals: Temp Pulse Resp BP Pulse Ox 99.0 F 72 26 156/92 100 03/01/18 22:58 03/01/18 22:58 03/01/18 22:58 03/01/18 22:58 03/01/18 23:50 - Head Head exam: Present: atraumatic, normocephalic - Eye Eye exam: Present: PERRL, conjuntiva pink, sclera anicteric Pupils: Present: PERRL - Neck Neck exam general surgery: Present: supple, trachea midline. Absent: lymphadenopathy - Respiratory Respiratory exam: Present: CTAB. Absent: accessory muscle use, rales, rhonchi, wheezes - Cardiovascular Cardiovascular exam: Present: RRR, +S1, +S2. Absent: diastolic murmur, gallop, rubs, systolic murmur - Skin Skin exam: Present: dry, intact Internal Med - H&P Results - Labs CBC & Chem 7: 03/01/18 22:37 03/01/18 22:37 Labs: Short CBC 03/01/18 Range/Units 22:37 WBC 8.9 (4.3-11.1) K/mcL Hgb 11.1 L (12.9-16.9) g/dL Hct 32.2 L (37.5-50.1) % Plt Count 287 (140-400) K/mcL Neutrophils # 6.0 (1.6-8.9) K/mcL BMP 03/01/18 22:37 Sodium 125 L Potassium 4.1 Chloride 89 L Carbon Dioxide 24 BUN 26 H Creatinine 1.55 H Glucose 474 H Calcium 9.1 Cardiac Enzymes 03/01/18 Range/Units 22:37 Troponin I < 0.03 (< 0.04) ng/mL Liver Function 03/01/18 Range/Units 22:37 Total Bilirubin 1.1 H (0.3-1.0) mg/dL Direct Bilirubin 0.3 H (0.0-0.2) mg/dL AST 11 L (13-39) Units/L ALT 12 (7-52) Units/L Alkaline Phosphatase 90 (34-104) Units/L Albumin 3.8 (3.5-5.7) g/dL - ABG Interpretation ABG results: 03/01/18 22:50 VBG pH 7.40 VBG pCO2 41 VBG pO2 34 VBG HCO3 26 - Assessment and plan (1) Hyperglycemia Current Visit: Yes Status: Acute Assessment and plan: Patient presented with elevated glucose -Known PMH of T1DM -Was given one dose of DSQ insulin in the ER -No signs of infection at this time Plan: -High dose SSI -Glucose checks Q4h -IVF at 100 mL/h -Resume home meds - Time Spent With Patient Total time spent is greater than 50% in coordination of care (as documented) at patient's floor/unit and/or counseling patient: <Jus Rollins - Last Filed: 03/02/18 06:34> Date of Encounter: 03/02/18 Internal Medicine - H&P: HPI History of present illness: Mr. Salas is a 83 year old male All Systems PM: A 10-system review of systems was performed and is negative for pertinent findings except as documented above in the HPI. - Constitutional Vitals: Temp Pulse Resp BP Pulse Ox 97.9 F 71 18 127/57 93 03/02/18 02:16 03/02/18 02:16 03/02/18 02:16 03/02/18 02:16 03/02/18 02:16 Internal Med - H&P Results - Labs CBC & Chem 7: 03/02/18 03:39 03/02/18 03:39 Labs: Short CBC 03/02/18 Range/Units 03:39 WBC 9.1 (4.3-11.1) K/mcL Hgb 9.4 L D (12.9-16.9) g/dL Hct 27.7 L (37.5-50.1) % Plt Count 228 (140-400) K/mcL Neutrophils # 6.0 (1.6-8.9) K/mcL BMP 04/20/18 03:39 Sodium 129 L Potassium 3.6 Chloride 95 L Carbon Dioxide 28 BUN 23 Creatinine 1.35 H Glucose 260 H Calcium 8.6 - Attending Attestation I examined this patient and my medical decision-making was reviewed with the Resident Physician. I agree with the documented findings, disposition and treatment plan as described except to the extent set forth below. - Time Spent With Patient Total time spent is greater than 50% in coordination of care (as documented) at patient's floor/unit and/or counseling patient:
[2018-03-02] MEDS ORDERED: Naloxone 0.4 MG/ML INJ IVP PRN (03:24)
[2018-03-02] MEDS ORDERED: Dextrose Gel 15 GM/37.5 ML TUBE PO PRN ×2 (03:26)
[2018-03-02] MEDS ORDERED: D5% in Water 1,000 ML IVC PRN (03:26)
[2018-03-02] MEDS ORDERED: *HR* Dextrose 50 % in Water (Syg) 50 ML SYRINGE IVP PRN (03:26)
[2018-03-02] MEDS ORDERED: 0.9 % Sodium Chloride 1,000 ML IVC SCH (03:30)
[2018-03-02 04:08] LABS: Basophils % 0.2 %; Eosinophils # 0.6 K/mcL (0.0-0.6); Eosinophils % 6.3 %; Hematocrit 27.7 % (37.5-50.1); Immature Granulocytes % 0.3 % (0-4); Lymphocytes # 1.6 K/mcL (0.6-4.6); Lymphocytes % 18.1 %; Mean Corpuscular HGB Conc 33.9 g/dL (31.6-35.5); Mean Corpuscular Hemoglobin 29.3 pg (28.0-33.3); Mean Corpuscular Volume 86.3 fL (83.0-100.0); Mean Platelet Volume 10.5 fL (9.4-12.4); Monocytes # 0.8 K/mcL (0.0-1.3); Monocytes % 8.6 %; Platelet Count 228 K/mcL (140-400); Red Blood Count 3.21 M/mcL (4.19-5.50); Red Cell Distribution Width 14.3 % (11.5-14.5); Segmented Neutrophils % 66.5 %
[2018-03-02 04:24] LABS: Hemoglobin 9.4 g/dL (12.9-16.9)
[2018-03-02 04:25] LABS: BUN/Creatinine Ratio 17 (6-26); Blood Urea Nitrogen 23 mg/dL (8-23); Calcium 8.6 mg/dL (8.6-10.3); Carbon Dioxide 28 mEq/L (23-29); Chloride 95 mEq/L (98-107); Glucose 260 mg/dL (70-105); Osmolality,Calculated 281 (280-300); Potassium 3.6 mEq/L (3.5-5.1); Sodium 129 mEq/L (136-145); eGFR For African Americans > 60 (> 60); eGFR For Non-African Americans 50 (> 60)
[2018-03-02] MEDS: Finasteride 5 MG TABLET PO SCH (09:24)
[2018-03-02] MEDS: Aspirin Enteric Coated 81 MG Tablet PO SCH (09:24)
[2018-03-02] MEDS: Apixaban 5 MG TABLET PO SCH ×2 (09:25→19:57)
[2018-03-02] MEDS: Insulin DETEMIR 100 UNIT/ML X5UNITS SQ SCH ×2 (09:25→21:26)
[2018-03-02] MEDS: Insulin LISPRO 300 UNITS/3 ML VIAL SQ SCH ×4 (09:25→21:26)
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
--- NOTE | 2018-03-02 15:19 | Electrocardiograph Report ---
[place] [id number] Test Date: 2018-03-01 Pat Name: Onofre Salas Department: 102 Room: 2A25 Gender: M Scientific Advisor: : [id number] Requested By: [id number] Order Number: [id number] Reading MD: Lexis Telles Measurements Intervals [place] Rate: 73 P: CO: 0 QRS: -18 QRSD: 159 T: 180 QT: 433 QTc: 459 Interpretive Statements ATRIAL FIBRILLATION WITH ABERRANT CONDUCTION OR VENTRICULAR PREMATURE COMPLEXES LEFT BUNDLE BRANCH BLOCK [120+ ms QRS DURATION, 80+ ms Q/S IN V1/V2, 85+ ms R IN I/aVL/V5/V6] Electronically Signed On 03-02-2018 15:17:52 EDT by Lexis Telles
[2018-03-02] MEDS: Furosemide 40 MG TABLET PO SCH (16:33)
[2018-03-03 04:13] LABS: Basophils % 0.4 %; Eosinophils # 0.6 K/mcL (0.0-0.6); Eosinophils % 8.2 %; Hematocrit 30.3 % (37.5-50.1); Hemoglobin 10.1 g/dL (12.9-16.9); Immature Granulocytes % 0.3 % (0-4); Lymphocytes # 2.5 K/mcL (0.6-4.6); Lymphocytes % 31.5 %; Mean Corpuscular HGB Conc 33.3 g/dL (31.6-35.5); Mean Corpuscular Hemoglobin 29.4 pg (28.0-33.3); Mean Corpuscular Volume 88.1 fL (83.0-100.0); Mean Platelet Volume 10.6 fL (9.4-12.4); Monocytes # 1.1 K/mcL (0.0-1.3); Neutrophils # 3.6 K/mcL (1.6-8.9); Platelet Count 286 K/mcL (140-400); Red Blood Count 3.44 M/mcL (4.19-5.50); Red Cell Distribution Width 14.8 % (11.5-14.5); Segmented Neutrophils % 45.6 %
[2018-03-03 04:26] LABS: Calcium 8.6 mg/dL (8.6-10.3); Potassium 3.4 mEq/L (3.5-5.1)
[2018-03-03] MEDS: Insulin LISPRO 300 UNITS/3 ML VIAL SQ SCH ×4 (08:03→22:37)
[2018-03-03] MEDS: Finasteride 5 MG TABLET PO SCH (08:19)
[2018-03-03] MEDS: Apixaban 5 MG TABLET PO SCH ×2 (08:19→22:37)
[2018-03-03] MEDS: Aspirin Enteric Coated 81 MG Tablet PO SCH (08:19)
[2018-03-03] MEDS: Furosemide 40 MG TABLET PO SCH (08:19)
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
[2018-03-03] MEDS ORDERED: Furosemide 40 MG TABLET PO SCH (09:00)
[2018-03-03] MEDS ORDERED: *HR* OxyCODONE/APAP 5/325 TABLET PO PRN (12:50)
[2018-03-03] MEDS: Insulin DETEMIR 100 UNIT/ML X5UNITS SQ SCH ×2 (12:57→22:38)
[2018-03-04] MEDS: Insulin LISPRO 300 UNITS/3 ML VIAL SQ SCH ×3 (08:09→17:08)
[2018-03-04] MEDS ORDERED: 0.9 % Sodium Chloride 500 ML IVC ONE (08:15)
[2018-03-04] MEDS ORDERED: 0.9 % Sodium Chloride 500 ML ONE (08:17)
[2018-03-04] MEDS: Finasteride 5 MG TABLET PO SCH (08:45)
[2018-03-04] MEDS: Aspirin Enteric Coated 81 MG Tablet PO SCH (08:45)
[2018-03-04] MEDS: Apixaban 5 MG TABLET PO SCH ×2 (08:45→20:26)
[2018-03-04] MEDS: Insulin DETEMIR 100 UNIT/ML X5UNITS SQ SCH ×3 (08:45→20:31)
[2018-03-04] MEDS ORDERED: Insulin LISPRO 300 UNITS/3 ML VIAL SQ SCH (08:51)
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
[2018-03-05] MEDS: Apixaban 5 MG TABLET PO SCH (08:10)
[2018-03-05] MEDS: Finasteride 5 MG TABLET PO SCH (08:12)
[2018-03-05] MEDS: Aspirin Enteric Coated 81 MG Tablet PO SCH (08:12)
[2018-03-05] MEDS: Insulin LISPRO 300 UNITS/3 ML VIAL SQ SCH ×2 (08:14→11:31)
[2018-03-05] MEDS: Insulin DETEMIR 100 UNIT/ML X5UNITS SQ SCH (08:18)
[2018-03-05 11:02] VITALS: BP 132/58
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
--- NOTE | 2018-03-06 05:49 | Electrocardiograph Report ---
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
== END 2018-03-05 14:25 | disposition home health service (06) | DRG 420 ==
LOC: 2ANU 22:18 → EMEROO 22:18 → 2ANU 03-02 01:56
PROVIDERS: ADMIT Internal Medicine Cardiovascular Disease; ATTEND Internal Medicine Cardiovascular Disease

== ENCOUNTER 2019-03-20 23:49 | Observation (INO) ==
[2019-03-21] MEDS ORDERED: 0.9 % Sodium Chloride 1,000 ML IVC ONE (00:03)
--- NOTE | 2019-03-21 00:15 | Emergency Department Note ---
Disposition Clinical Impression: Generalized weakness, Hyperglycemia, UTI (urinary tract infection) Disposition: Admitted As Inpatient Condition: Good Forms: ED Satisfaction Letter Time of Disposition: 02:43 General Adult HPI - General Chief complaint: ED Recheck/Abnormal Lab/Rx Stated complaint: high blood sugar Time Seen by Provider: 03/20/19 23:53 Source: patient, EMS Limitations: no limitations - History of Present Illness HPI Narrative: Patient is a 84-year-old gentleman presents to emergency department with chief complaint of elevated blood sugar. Per the patient's family the patient has had blood sugars in the 500s for the last week. Patient has history of diabetes takes insulin and is at some difficulty controlling his blood sugars recently. The patient reports that his also been feeling extremely weak and has had a difficult time ambulating and getting up without difficulty. The patient denies abdominal pain denies vomiting or diarrhea Pain Scale: 5 - Related Data Home Medications Medication Instructions Recorded Confirmed Aspirin [Lo-Dose Aspirin EC] 81 mg PO DAILY 12/24/17 02/19/19 Citalopram [CeleXA] 20 mg PO DAILY 12/24/17 02/19/19 Ferrous Sulfate [Iron] 325 mg PO DAILY 12/24/17 02/19/19 Finasteride [Proscar] 5 mg PO DAILY 12/24/17 02/19/19 Simvastatin [Zocor] 40 mg PO QPM 12/24/17 02/19/19 Tamsulosin [Flomax] 0.4 mg PO DAILY 12/24/17 02/19/19 Tramadol HCl [Ultram] 50 mg PO BID 12/24/17 02/19/19 Metoclopramide HCl 5 mg PO TID PRN 03/02/18 02/19/19 Apixaban [Eliquis] 2.5 mg PO BID 01/18/19 02/19/19 Insulin LISPRO [Admelog] 8 unit SQ TIDWM 01/18/19 02/19/19 Polyethylene Glycol 3350 [MiraLAX] 17 gm PO DAILY PRN 02/19/19 02/19/19 Previous Rx's Medication Instructions Recorded Insulin DETEMIR [Levemir] 10 unit SQ BID #50 [id number] 03/05/18 Furosemide [Lasix] 40 mg PO DAILY #30 tab 02/22/19 Allergies Allergy/AdvReac Type Severity Reaction Status Date / Time clopidogrel [From Plavix] Allergy See Verified 02/19/19 00:00 Comments phenobarbital Allergy See Verified 02/19/19 00:00 Comments All systems ED: reviewed and negative except as stated. Past Medical History - Past Medical History Attestation: Yes The following information was validated with the patient. Medical history: Reports: atrial fibrillation, CHF, coronary artery disease, DVT, diabetes, hyperlipidemia, hypertension, myocardial infarction, peripheral artery disease, renal disease Surgical history: Reports: angioplasty/stent, appendectomy, cholecystectomy, hip replacement, orthopedic, other Psychiatric history: Reports: anxiety, depression - Social History Smoking Status: Never smoker Smokeless Tobacco Status: Yes Alcohol use: Reports: none Drug use: Reports: none Physical Exam General: Conversant and pleasant interactive and nontoxic. Head: Normocephalic/atraumatic Eyes:PERRLA, EOMI, no conjunctivitis Nares: Without d/c. Ears: No erythema or d/c noted. Oralpharnyx: P&MMM noted, Neck: Supple, no JVD or ACCOUNTS RECEIVABLE ASSOCIATE noted. Cardovascular: regular rate and rhythm without murmur, brisk capillary refill, no peripheral edema. Lungs: Clear to ascultation bilaterally, non-labored Abd: Soft nontender, Non Distended, no guarding, no rebound. : Defered Extremities: moves all extremities equally Neuro: AOx2, no obvious gross neuro deficit Psych: Normal Affect Derm: No rash noted - General Limitations: no limitations General appearance: alert, in no apparent distress Course Vital Signs Temperature 97.5 F L 03/20/19 23:53 Pulse Rate 75 03/20/19 23:53 Respiratory Rate 24 03/20/19 23:53 Blood Pressure 116/68 03/20/19 23:53 O2 Sat by Pulse Oximetry 100 03/20/19 23:53 Temperature 97.5 F L 03/20/19 23:53 Pulse Rate 95 03/21/19 01:00 Respiratory Rate 28 03/21/19 01:00 Blood Pressure 142/75 03/21/19 01:00 O2 Sat by Pulse Oximetry 100 03/21/19 01:00 Oxygen Delivery Oxygen Delivery Room Air Medical Decision Making - MDM Narrative Medical decision making narrative: Case was discussed with the hospitalist the patient was accepted to the hospitalist service - Lab Data Result diagrams: 03/21/19 00:15 03/21/19 00:15 Lab Results 03/21/19 03/21/19 03/21/19 Range/Units 00:15 00:15 00:15 WBC 7.0 (4.3-11.1) K/mcL RBC 4.90 (4.19-5.50) M/mcL Hgb 15.0 (12.9-16.9) g/dL Hct 42.9 (37.5-50.1) % MCV 87.6 (83.0-100.0) fL MCH 30.6 (28.0-33.3) pg MCHC 35.0 (31.6-35.5) g/dL RDW 13.8 (11.5-14.5) % Plt Count 287 (140-400) K/mcL MPV 11.3 (9.4-12.4) fL Immature Gran % 0.9 (0-4) % Seg Neutrophils % 72.7 % Lymphocytes % 15.8 % Monocytes % 7.3 % Eosinophils % 2.9 % Basophils % 0.4 % Neutrophils # 5.1 (1.6-8.9) K/mcL Lymphocytes # 1.1 (0.6-4.6) K/mcL Monocytes # 0.5 (0.0-1.3) K/mcL Eosinophils # 0.2 (0.0-0.6) K/mcL Basophils # 0.0 (0.0-0.2) K/mcL PT (9.4-12.1) Seconds INR VBG pH (7.32-7.42) pH Units VBG pCO2 (41-51) mmHg VBG pO2 (25-50) mmHg VBG HCO3 (21-27) mEq/L Sodium 130 L (136-145) mEq/L Potassium 4.6 (3.5-5.1) mEq/L Chloride 94 L (98-107) mEq/L Carbon Dioxide 26 (23-29) mEq/L BUN 31 H (8-23) mg/dL Creatinine 1.50 H (0.70-1.30) mg/dL Est GFR ( Amer) 54 L (> 60) Est GFR (Non-Af Amer) 44 L (> 60) BUN/Creatinine Ratio 21 (6-26) Glucose 370 H (70-105) mg/dL Serum Osmolality 298 (280-300) mOsm/kg Calculated Osmolality 292 (280-300) Lactic Acid (0.5-2.2) mmol/L Calcium 8.6 (8.6-10.3) mg/dL Magnesium 1.9 (1.6-2.6) mg/dL Total Bilirubin 2.1 H (0.3-1.0) mg/dL AST 159 H (13-39) Units/L ALT 334 H (7-52) Units/L Alkaline Phosphatase 330 H (34-104) Units/L Troponin I < 0.03 (< 0.04) ng/mL Serum Total Protein 6.7 (6.4-8.9) g/dL Albumin 3.0 L (3.5-5.7) g/dL Globulin 3.7 H (2.4-3.5) g/dL Albumin/Globulin Ratio 0.8 L (1.1-2.2) Beta-Hydroxybutyric Acd (0.02-0.27) mmol/L Urine Color (Yellow) Urine Clarity (Clear) Urine pH (5.0-8.0) pH Units Ur Specific Dow[place] (1.010-1.025) Urine Protein (Neg-Trace) mg/dL Urine Glucose (UA) (Normal) mg/dL Urine Ketones (Negative) mg/dL Urine Blood (Negative) Urine Nitrite (Negative) Urine Bilirubin (Negative) Urine Urobilinogen (Normal) mg/dL Ur Leukocyte Esterase (Negative) Urine Microscopic RBC (0-3) per hpf Urine Microscopic WBC (0-3) per hpf Ur Squamous Epith Cells (None-Few) per lpf Urine Bacteria (None-Few) per hpf Hyaline Casts (None-Few) per lpf Ur Culture Indicated? (NO) 03/21/19 03/21/19 03/21/19 Range/Units 00:15 00:15 00:15 WBC (4.3-11.1) K/mcL RBC (4.19-5.50) M/mcL Hgb (12.9-16.9) g/dL Hct (37.5-50.1) % MCV (83.0-100.0) fL MCH (28.0-33.3) pg MCHC (31.6-35.5) g/dL RDW (11.5-14.5) % Plt Count (140-400) K/mcL MPV (9.4-12.4) fL Immature Gran % (0-4) % Seg Neutrophils % % Lymphocytes % % Monocytes % % Eosinophils % % Basophils % % Neutrophils # (1.6-8.9) K/mcL Lymphocytes # (0.6-4.6) K/mcL Monocytes # (0.0-1.3) K/mcL Eosinophils # (0.0-0.6) K/mcL Basophils # (0.0-0.2) K/mcL PT 11.8 (9.4-12.1) Seconds INR 1.0 VBG pH (7.32-7.42) pH Units VBG pCO2 (41-51) mmHg VBG pO2 (25-50) mmHg VBG HCO3 (21-27) mEq/L Sodium (136-145) mEq/L Potassium (3.5-5.1) mEq/L Chloride (98-107) mEq/L Carbon Dioxide (23-29) mEq/L BUN (8-23) mg/dL Creatinine (0.70-1.30) mg/dL Est GFR ( Amer) (> 60) Est GFR (Non-Af Amer) (> 60) BUN/Creatinine Ratio (6-26) Glucose (70-105) mg/dL Serum Osmolality (280-300) mOsm/kg Calculated Osmolality (280-300) Lactic Acid 3.1 H (0.5-2.2) mmol/L Calcium (8.6-10.3) mg/dL Magnesium (1.6-2.6) mg/dL Total Bilirubin (0.3-1.0) mg/dL AST (13-39) Units/L ALT (7-52) Units/L Alkaline Phosphatase (34-104) Units/L Troponin I (< 0.04) ng/mL Serum Total Protein (6.4-8.9) g/dL Albumin (3.5-5.7) g/dL Globulin (2.4-3.5) g/dL Albumin/Globulin Ratio (1.1-2.2) Beta-Hydroxybutyric Acd 0.45 H (0.02-0.27) mmol/L Urine Color (Yellow) Urine Clarity (Clear) Urine pH (5.0-8.0) pH Units Ur Specific [place] (1.010-1.025) Urine Protein (Neg-Trace) mg/dL Urine Glucose (UA) (Normal) mg/dL Urine Ketones (Negative) mg/dL Urine Blood (Negative) Urine Nitrite (Negative) Urine Bilirubin (Negative) Urine Urobilinogen (Normal) mg/dL Ur Leukocyte Esterase (Negative) Urine Microscopic RBC (0-3) per hpf Urine Microscopic WBC (0-3) per hpf Ur Squamous Epith Cells (None-Few) per lpf Urine Bacteria (None-Few) per hpf Hyaline Casts (None-Few) per lpf Ur Culture Indicated? (NO) 03/21/19 03/21/19 Range/Units 00:41 01:36 WBC (4.3-11.1) K/mcL RBC (4.19-5.50) M/mcL Hgb (12.9-16.9) g/dL Hct (37.5-50.1) % MCV (83.0-100.0) fL MCH (28.0-33.3) pg MCHC (31.6-35.5) g/dL RDW (11.5-14.5) % Plt Count (140-400) K/mcL MPV (9.4-12.4) fL Immature Gran % (0-4) % Seg Neutrophils % % Lymphocytes % % Monocytes % % Eosinophils % % Basophils % % Neutrophils # (1.6-8.9) K/mcL Lymphocytes # (0.6-4.6) K/mcL Monocytes # (0.0-1.3) K/mcL Eosinophils # (0.0-0.6) K/mcL Basophils # (0.0-0.2) K/mcL PT (9.4-12.1) Seconds INR VBG pH 7.47 H (7.32-7.42) pH Units VBG pCO2 35 L (41-51) mmHg VBG pO2 25 (25-50) mmHg VBG HCO3 26 (21-27) mEq/L Sodium (136-145) mEq/L Potassium (3.5-5.1) mEq/L Chloride (98-107) mEq/L Carbon Dioxide (23-29) mEq/L BUN (8-23) mg/dL Creatinine (0.70-1.30) mg/dL Est GFR ( Amer) (> 60) Est GFR (Non-Af Amer) (> 60) BUN/Creatinine Ratio (6-26) Glucose (70-105) mg/dL Serum Osmolality (280-300) mOsm/kg Calculated Osmolality (280-300) Lactic Acid (0.5-2.2) mmol/L Calcium (8.6-10.3) mg/dL Magnesium (1.6-2.6) mg/dL Total Bilirubin (0.3-1.0) mg/dL AST (13-39) Units/L ALT (7-52) Units/L Alkaline Phosphatase (34-104) Units/L Troponin I (< 0.04) ng/mL Serum Total Protein (6.4-8.9) g/dL Albumin (3.5-5.7) g/dL Globulin (2.4-3.5) g/dL Albumin/Globulin Ratio (1.1-2.2) Beta-Hydroxybutyric Acd (0.02-0.27) mmol/L Urine Color Yellow (Yellow) Urine Clarity Clear (Clear) Urine pH 7.0 (5.0-8.0) pH Units Ur Specific [place] 1.014 (1.010-1.025) Urine Protein 30 H (Neg-Trace) mg/dL Urine Glucose (UA) >=1000 H (Normal) mg/dL Urine Ketones Negative (Negative) mg/dL Urine Blood Negative (Negative) Urine Nitrite Negative (Negative) Urine Bilirubin Negative (Negative) Urine Urobilinogen Normal (Normal) mg/dL Ur Leukocyte Esterase Moderate H (Negative) Urine Microscopic RBC 0-3 (0-3) per hpf Urine Microscopic WBC 15-30 H (0-3) per hpf Ur Squamous Epith Cells Many H (None-Few) per lpf Urine Bacteria None Seen (None-Few) per hpf Hyaline Casts None Seen (None-Few) per lpf Ur Culture Indicated? YES A (NO)
[2019-03-21 00:26] LABS: Basophils % 0.4 %; Eosinophils # 0.2 K/mcL (0.0-0.6); Eosinophils % 2.9 %; Hematocrit 42.9 % (37.5-50.1); Immature Granulocytes % 0.9 % (0-4); Lymphocytes # 1.1 K/mcL (0.6-4.6); Lymphocytes % 15.8 %; Mean Corpuscular Hemoglobin 30.6 pg (28.0-33.3); Mean Corpuscular Volume 87.6 fL (83.0-100.0); Mean Platelet Volume 11.3 fL (9.4-12.4); Monocytes # 0.5 K/mcL (0.0-1.3); Monocytes % 7.3 %; Neutrophils # 5.1 K/mcL (1.6-8.9); Platelet Count 287 K/mcL (140-400); Red Cell Distribution Width 13.8 % (11.5-14.5); Segmented Neutrophils % 72.7 %
[2019-03-21 00:47] LABS: Prothrombin Time 11.8 Seconds (9.4-12.1)
[2019-03-21 00:49] LABS: Alanine Aminotransferase 334 Units/L (7-52); Albumin/Globulin Ratio 0.8 (1.1-2.2); Alkaline Phosphatase 330 Units/L (34-104); Aspartate Amino Transferase 159 Units/L (13-39); BUN/Creatinine Ratio 21 (6-26); Bilirubin,Total 2.1 mg/dL (0.3-1.0); Blood Urea Nitrogen 31 mg/dL (8-23); Calcium 8.6 mg/dL (8.6-10.3); Carbon Dioxide 26 mEq/L (23-29); Chloride 94 mEq/L (98-107); Globulin 3.7 g/dL (2.4-3.5); Glucose 370 mg/dL (70-105); Magnesium 1.9 mg/dL (1.6-2.6); Osmolality,Calculated 292 (280-300); Potassium 4.6 mEq/L (3.5-5.1); Sodium 130 mEq/L (136-145); Total Protein 6.7 g/dL (6.4-8.9); Troponin I < 0.03 ng/mL (< 0.04); eGFR For Non-African Americans 44 (> 60)
[2019-03-21 01:03] LABS: VBG HCO3 26 mEq/L (21-27); VBG PCO2 35 mmHg (41-51); VBG PH 7.47 pH Units (7.32-7.42); VBG PO2 25 mmHg (25-50)
[2019-03-21 01:53] LABS: Bilirubin,Urine Negative (Negative); Blood,Urine Negative (Negative); Clarity,Urine Clear (Clear); Color,Urine Yellow (Yellow); Glucose,Urine (UA) >=1000 mg/dL (Normal); Ketones,Urine Negative (Negative); Leukocyte Esterase,Urine Moderate (Negative); Nitrite,Urine Negative (Negative); Protein,Urine 30 mg/dL (Neg-Trace); Specific Gravity,Urine 1.014 (1.010-1.025); Urobilinogen,Urine Normal (Normal)
[2019-03-21 01:54] LABS: Bacteria,Urine None Seen per hpf (None-Few); Hyaline Casts,Urine None Seen per lpf (None-Few); RBC,Urine 0-3 per hpf (0-3); Squamous Epithelial Cell,Urine Many per lpf (None-Few); WBC,Urine 15-30 per hpf (0-3)
[2019-03-21] MEDS ORDERED: cefTRIAXone 1,000 MG in Water for inj. (sterile) 20 ML 10 ML IVP ONE (02:07)
[2019-03-21 02:51] LABS: Amylase 36 Units/L (29-103); Lipase 23 Units/L (11-82)
[2019-03-21] MEDS: 0.9 % Sodium Chloride 1,000 ML IVC SCH ×2 (03:10→13:58)
[2019-03-21] MEDS ORDERED: *HR* Dextrose 50 % in Water (Syg) 50 ML SYRINGE IVP PRN (04:49)
[2019-03-21] MEDS ORDERED: D5% in Water 1,000 ML IVC PRN (04:49)
[2019-03-21] MEDS ORDERED: Dextrose Gel 15 GM/37.5 ML TUBE PO PRN ×2 (04:49)
[2019-03-21] MEDS ORDERED: Naloxone 0.4 MG/ML INJ IVP PRN ×2 (05:44)
--- NOTE | 2019-03-21 06:03 | Internal Med History&Physical ---
<Rigo Dudley - Last Filed: 03/21/19 06:36> Date of Encounter: 03/21/19 Time of Encounter: 04:45 Internal Medicine - H&P: HPI Chief complaint: Hyperglycemia Admitted From: Home Plans for Post Hospital Care: Home History of present illness: Mr. Salas is a 84 year old male with PMHx of DM, afib, CHF, CAD, HLD, HTN, renal disease who presented to [facility] via ambulance with hyperglycemia. Patient reports his "son or grandson" called 911 after a routine blood glucose check because it was "too high." He couldn't remember what the number was, but he reports his insulin regimen was recently changed by his PCP. He also complains of generalized weakness for the past week. Patient was afebrile, regular heart rate, and normotensive in ED. He was mildly hyponatremic and initial blood glucose was 370. Patient also had lactic acid of 3.1. Elevated LFTs with normal amylase and lipase. UA was concerning for UTI, and patient was given IV rocephin. Patient appears confused with poor insight upon my exam. He is a poor historian and wasn't able to tell me much about his home medications or past medical history. He didn't know how high his glucose was when he checked it at home. He does admit to generalized weakness for the past week. He denies chest pain, shortness of breath, abdominal pain, burning or pain with urination, increased frequency, changes in bowel habits, fevers, syncope. He is a former smoker, quit 40 year ago. He denies alcohol and drug use. Past Med Surg Social Fam HX - Past Medical History Medical history: atrial fibrillation, CHF, coronary artery disease, DVT, diabetes, hyperlipidemia, hypertension, myocardial infarction, peripheral artery disease, renal disease Psychiatric history: anxiety, depression - Past Surgical History Surgical History: angioplasty/stent, appendectomy, cholecystectomy, hip replacement, orthopedic, other Additional surgical history: plate in hip. 1 cardiac stent - Social History Smoking Status: Never smoker Smokeless Tobacco Status: Yes Alcohol use: none Drug use: none - Family History Mother Living Status: Father Living Status: Internal Medicine - H&P: Meds Aspirin [Lo-Dose Aspirin EC] 81 mg PO DAILY 12/24/17 [History] Citalopram [CeleXA] 20 mg PO DAILY 12/24/17 [History] Ferrous Sulfate [Iron] 325 mg PO DAILY 12/24/17 [History] Finasteride [Proscar] 5 mg PO DAILY 12/24/17 [History] Simvastatin [Zocor] 40 mg PO QPM 12/24/17 [History] Tamsulosin [Flomax] 0.4 mg PO DAILY 12/24/17 [History] Tramadol HCl [Ultram] 50 mg PO BID 12/24/17 [History] Metoclopramide HCl 5 mg PO TID PRN 03/02/18 [History] Insulin DETEMIR [Levemir] 10 unit SQ BID #50 [id number] 03/05/18 [Rx] Apixaban [Eliquis] 2.5 mg PO BID 01/18/19 [History] Insulin LISPRO [Admelog] 8 unit SQ TIDWM 01/18/19 [History] Polyethylene Glycol 3350 [MiraLAX] 17 gm PO DAILY PRN 02/19/19 [History] Furosemide [Lasix] 40 mg PO DAILY #30 tab 02/22/19 [Rx] Allergy/AdvReac Type Severity Reaction Status Date / Time clopidogrel [From Plavix] Allergy See Verified 02/19/19 00:00 Comments phenobarbital Allergy See Verified 02/19/19 00:00 Comments All Systems PM: A 10-system review of systems was performed and is negative for pertinent findings except as documented above in the HPI. - Constitutional Vitals: Temp Pulse Resp BP Pulse Ox 97.7 F 78 17 119/72 98 03/21/19 04:35 03/21/19 04:35 03/21/19 04:35 03/21/19 04:35 03/21/19 04:35 General appearance: Present: A&O X 2, no acute distress Exam: Patient has very poor insight to his medical conditions and appears confused with several questions - Head Head exam: Present: atraumatic - Eye Eye exam: Present: EOMI. Absent: conjunctival injection - Respiratory Respiratory exam: Present: CTAB - Cardiovascular Cardiovascular exam: Present: irregular rhythm - GI/Abdominal GI/Abdominal exam: Present: soft, tenderness (mildly in RUQ). Absent: distended - Extremities Exam Extremities exam: Present: normal capillary refill, warm, radial pulses palpable and symmetrical. Absent: calf tenderness, pedal edema, tenderness - Neurological Exam Neurological exam: Present: altered, CN II-XII intact, no focal deficits, strengths equal and symetr throughout - Psychiatric Psychiatric exam: Present: normal affect, normal mood - Skin Skin exam: Present: dry, warm Additional comments: circular region of ecchymosis in right lower leg Internal Med - H&P Results - Labs CBC & Chem 7: 03/21/19 00:15 03/21/19 00:15 Labs: Short CBC 03/21/19 Range/Units 00:15 WBC 7.0 (4.3-11.1) K/mcL Hgb 15.0 (12.9-16.9) g/dL Hct 42.9 (37.5-50.1) % Plt Count 287 (140-400) K/mcL Neutrophils # 5.1 (1.6-8.9) K/mcL BMP 03/21/19 00:15 Sodium 130 L Potassium 4.6 Chloride 94 L Carbon Dioxide 26 BUN 31 H Creatinine 1.50 H Glucose 370 H Calcium 8.6 Cardiac Enzymes 03/21/19 Range/Units 00:15 Troponin I < 0.03 (< 0.04) ng/mL Liver Function 03/21/19 Range/Units 00:15 Total Bilirubin 2.1 H (0.3-1.0) mg/dL AST 159 H (13-39) Units/L ALT 334 H (7-52) Units/L Alkaline Phosphatase 330 H (34-104) Units/L Albumin 3.0 L (3.5-5.7) g/dL Urine 03/21/19 Range/Units 01:36 Urine Color Yellow (Yellow) Urine Clarity Clear (Clear) Urine pH 7.0 (5.0-8.0) pH Units Ur Specific [place] 1.014 (1.010-1.025) Urine Protein 30 H (Neg-Trace) mg/dL Urine Glucose (UA) >=1000 H (Normal) mg/dL - ABG Interpretation ABG results: 03/21/19 00:41 VBG pH 7.47 H VBG pCO2 35 L VBG pO2 25 VBG HCO3 26 - Impressions ITS Impressions Chest X-Ray 03/21/19 00:01 IMPRESSION: Stable portable study. D/ / Marcie Hayden Cha, MD / Marcie Hayden Cha, MD Interpreting Provider: Marcie Hayden Cha, MD Head CT 03/21/19 00:10 IMPRESSION: 1. No acute intracranial abnormality. 2. Diffuse cerebral atrophy with chronic small vessel ischemic disease. D/ / Bernardo Rodriguez MD / Bernardo Rodriguez MD Interpreting Provider: Bernardo Rodriguez MD Abdomen/Pelvis CT 03/21/19 01:10 IMPRESSION: Cholelithiasis Increased density in the renal pyramids which may represent micro calcinosis, renal tubular acidosis or other etiologies as previously discussed on the comparison study No evidence of obstructive uropathy Dilation of the bladder which may represent chronic outlet obstruction please correlate clinically Age-indeterminate but new compression deformity of the L1 vertebral body Diverticulosis without evidence of diverticulitis D/ / Mike Flowers MD / Mike Flowers MD Interpreting Provider: Mike Flowers MD - Assessment and Plan (1) Hyperglycemia Current Visit: Yes Status: Acute Assessment and plan: Patient's initial glucose in ED was 380 Patient started on low-dose sliding scale insulin Continue IV fluid hydration Routine glucose checks (2) Elevated LFTs Current Visit: Yes Status: Acute Assessment and plan: Patient with AST 159, ALT of 334, Alk phos 330 No history of alcohol use CT abdomen/pelvis showed cholelithiasis Will get hepatic panel Ammonia level RUQ ultrasound - if inconclusive, can consider MRCP Repeat CMP (3) Generalized weakness Current Visit: Yes Status: Acute Assessment and plan: Patient with generalized weakness for 1 week Could be 2/2 hyperglycemia vs UTI vs other etiology Head CT showed diffuse cerebral atrophy with chronic small vessel ischemia Patient with lactic acid of 3.1, resolved to 1.8 (4) UTI (urinary tract infection) Current Visit: Yes Status: Acute Assessment and plan: Suspected UTI with positive leukocyte esterase on urinalysis Distended bladder with possible bladder outlet obstruction on abdominal/pelvis CT Patient given 1 g of rocephin in ED, will continue with current antibiotic regimen until urine cultures finalize Qualifiers: Qualified Code(s): N39.0 - Urinary tract infection, site not specified (5) Atrial fibrillation Current Visit: No Status: Chronic Assessment and plan: Patient with history of afib Irregular on my exam Continue home eliquis Qualifiers: Atrial fibrillation type: paroxysmal Qualified Code(s): I48.0 - Paroxysmal atrial fibrillation (6) Hyponatremia Current Visit: No Status: Acute Assessment and plan: Patient's Na of 130, slightly lower than baseline Continue normal saline IV fluid hydration (7) DVT prophylaxis Current Visit: No Status: Acute Assessment and plan: Continued home eliquis (8) Renal disease Current Visit: Yes Status: Acute Assessment and plan: Patient with creatinine of 1.5, which appears to be around his baseline Continue IV fluid hydration Recheck CMP - Time Spent With Patient Total time spent is greater than 50% in coordination of care (as documented) at patient's floor/unit and/or counseling patient: <RajlatanyamarcelloChristianokathryn Richter - Last Filed: 03/21/19 07:10> Date of Encounter: 03/21/19 Internal Medicine - H&P: HPI History of present illness: Mr. Salas is a 84 year old male All Systems PM: A 10-system review of systems was performed and is negative for pertinent findings except as documented above in the HPI. - Constitutional Vitals: Temp Pulse Resp BP Pulse Ox 97.7 F 78 17 119/72 98 03/21/19 04:35 03/21/19 04:35 03/21/19 04:35 03/21/19 04:35 03/21/19 04:35 Internal Med - H&P Results - Labs CBC & Chem 7: 03/21/19 06:13 03/21/19 00:15 Labs: Short CBC 03/21/19 03/21/19 Range/Units 00:15 06:13 WBC 7.0 8.9 (4.3-11.1) K/mcL Hgb 15.0 13.9 (12.9-16.9) g/dL Hct 42.9 40.1 (37.5-50.1) % Plt Count 287 256 (140-400) K/mcL Neutrophils # 5.1 6.7 (1.6-8.9) K/mcL BMP 03/21/19 00:15 Sodium 130 L Potassium 4.6 Chloride 94 L Carbon Dioxide 26 BUN 31 H Creatinine 1.50 H Glucose 370 H Calcium 8.6 Cardiac Enzymes 03/21/19 Range/Units 00:15 Troponin I < 0.03 (< 0.04) ng/mL Liver Function 03/21/19 Range/Units 00:15 Total Bilirubin 2.1 H (0.3-1.0) mg/dL AST 159 H (13-39) Units/L ALT 334 H (7-52) Units/L Alkaline Phosphatase 330 H (34-104) Units/L Albumin 3.0 L (3.5-5.7) g/dL Urine 03/21/19 Range/Units 01:36 Urine Color Yellow (Yellow) Urine Clarity Clear (Clear) Urine pH 7.0 (5.0-8.0) pH Units Ur Specific [place] 1.014 (1.010-1.025) Urine Protein 30 H (Neg-Trace) mg/dL Urine Glucose (UA) >=1000 H (Normal) mg/dL - ABG Interpretation ABG results: 03/21/19 00:41 VBG pH 7.47 H VBG pCO2 35 L VBG pO2 25 VBG HCO3 26 - Impressions ITS Impressions Chest X-Ray 03/21/19 00:01 IMPRESSION: Stable portable study. D/ / Marcie Hayden Cha, MD / Marcie Hayden Cha, MD Interpreting Provider: Marcie Hayden Cha, MD Head CT 03/21/19 00:10 IMPRESSION: 1. No acute intracranial abnormality. 2. Diffuse cerebral atrophy with chronic small vessel ischemic disease. D/ / Bernardo Rodriguez MD / Bernardo Rodriguez MD Interpreting Provider: Bernardo Rodriguez MD Abdomen/Pelvis CT 03/21/19 01:10 IMPRESSION: Cholelithiasis Increased density in the renal pyramids which may represent micro calcinosis, renal tubular acidosis or other etiologies as previously discussed on the comparison study No evidence of obstructive uropathy Dilation of the bladder which may represent chronic outlet obstruction please correlate clinically Age-indeterminate but new compression deformity of the L1 vertebral body Diverticulosis without evidence of diverticulitis D/ / Mike Flowers MD / Mike Flowers MD Interpreting Provider: Mike Flowers MD - Assessment and Plan (1) Generalized weakness Current Visit: Yes Status: Acute (2) Hyperglycemia Current Visit: Yes Status: Acute (3) Atrial fibrillation Current Visit: No Status: Chronic Qualifiers: Atrial fibrillation type: paroxysmal Qualified Code(s): I48.0 - Paroxysmal atrial fibrillation (4) DVT prophylaxis Current Visit: No Status: Acute (5) Hyponatremia Current Visit: No Status: Acute (6) UTI (urinary tract infection) Current Visit: Yes Status: Acute Qualifiers: Qualified Code(s): N39.0 - Urinary tract infection, site not specified (7) Elevated LFTs Current Visit: Yes Status: Acute (8) Renal disease Current Visit: Yes Status: Acute - Time Spent With Patient Total time spent is greater than 50% in coordination of care (as documented) at patient's floor/unit and/or counseling patient: - Attending Attestation Family history and physical examination of the patient and discussed his management with the resident. I reviewed the resident's note and agree with the assessment and plan of care. In short patient is a 84-year-old male with a past medical history of diabetes, atrial fibrillation, CHF, CAD, hypertension and renal disease who was brought into the ED by family members due to concerns for hyperglycemia. On arrival found to have a blood glucose of 370, lactic acid of 3.1, mild BETITO and abnormal LFTs. UA suggestive of UTI. CT scan of the abdomen notable for cholelithiasis and dilatation of the bladder concerning for chronic elbow with obstruction. Patient received a one-time dose of Rocephin for possible UTI and admitted for glycemic control and further workup of abnormal LFTs. We will obtain viral hepatitis panel and iver ultrasound. Craven catheter in place. Consider urology consult if further evidence of bladder outlet obstruction.
[2019-03-21 06:31] LABS: Basophils % 0.4 %; Eosinophils # 0.2 K/mcL (0.0-0.6); Eosinophils % 1.9 %; Hematocrit 40.1 % (37.5-50.1); Hemoglobin 13.9 g/dL (12.9-16.9); Immature Granulocytes % 0.8 % (0-4); Lymphocytes # 1.2 K/mcL (0.6-4.6); Lymphocytes % 13.5 %; Mean Corpuscular HGB Conc 34.7 g/dL (31.6-35.5); Mean Corpuscular Hemoglobin 30.5 pg (28.0-33.3); Mean Corpuscular Volume 88.1 fL (83.0-100.0); Mean Platelet Volume 10.9 fL (9.4-12.4); Monocytes # 0.7 K/mcL (0.0-1.3); Monocytes % 7.9 %; Neutrophils # 6.7 K/mcL (1.6-8.9); Platelet Count 256 K/mcL (140-400); Red Blood Count 4.55 M/mcL (4.19-5.50); Red Cell Distribution Width 13.6 % (11.5-14.5); Segmented Neutrophils % 75.5 %
[2019-03-21 06:53] LABS: INR 1.1; Prothrombin Time 12.2 Seconds (9.4-12.1)
[2019-03-21] MEDS ORDERED: Insulin LISPRO 300 UNITS/3 ML VIAL SQ SCH ×2 (07:30→21:00)
[2019-03-21] MEDS: Insulin LISPRO 300 UNITS/3 ML VIAL SQ SCH ×4 (08:06→21:45)
[2019-03-21] MEDS: Finasteride 5 MG TABLET PO SCH (08:06)
[2019-03-21] MEDS: Apixaban 2.5 MG TABLET PO SCH ×2 (08:06→21:45)
[2019-03-21] MEDS: Aspirin Enteric Coated 81 MG Tablet PO SCH (08:06)
[2019-03-21 08:48] LABS: Albumin 2.7 g/dL (3.5-5.7); Albumin/Globulin Ratio 0.8 (1.1-2.2); Bilirubin,Total 1.6 mg/dL (0.3-1.0); Calcium 8.2 mg/dL (8.6-10.3); Globulin 3.3 g/dL (2.4-3.5); Potassium 3.8 mEq/L (3.5-5.1)
[2019-03-21] MEDS ORDERED: traMADol 50 MG TABLET PO SCH (09:00)
[2019-03-21 13:05] LABS: Hepatitis A Antibody IgM Nonreactive (Nonreactive)
[2019-03-21 13:38] LABS: Hepatitis B Core IgM Reactive (Nonreactive)
[2019-03-21 13:52] LABS: Hepatitis B Surface Antigen Reactive (Nonreactive)
[2019-03-21 14:11] LABS: Hepatitis C Virus Antibody Nonreactive (Nonreactive)
--- NOTE | 2019-03-21 14:35 | Event Note ---
Date of Encounter: 03/21/19 Time of Encounter: 14:31 Patient is a 58 years old male who has history of diabetes atrial fibrillation CHF CAD hyperlipidemia hypertension CK D stages 3 admitted for uncontrolled diabetes she has been running high. After admission he was found elevated LFTs. But the patient denies nausea vomiting no abdominal pain no right upper quadrant tenderness. He is afebrile. (1) DM type 2 with Hyperglycemia Current Visit: Yes Status: Acute Assessment and plan: Patient's initial glucose in ED was 380 will restart home detemir 10 units BID, and SSI (2) Elevated LFTs CT abdomen/pelvis showed cholelithiasis, d/c statin Current Visit: Yes Status: Acute Assessment and plan: Patient with AST 159, ALT of 334, Alk phos 330 No history of alcohol use Will get hepatic panel Ammonia level RUQ ultrasound - if inconclusive, can consider MRCP Repeat CMP (3) Generalized weakness Current Visit: Yes Status: Acute Assessment and plan: Patient with generalized weakness for 1 week Could be 2/2 hyperglycemia vs UTI vs other etiology Head CT showed diffuse cerebral atrophy with chronic small vessel ischemia Patient with lactic acid of 3.1, resolved to 1.8 (4) UTI (urinary tract infection) Current Visit: Yes Status: Acute Assessment and plan: Suspected UTI with positive leukocyte esterase on urinalysis Distended bladder with possible bladder outlet obstruction on abdominal/pelvis CT Patient given 1 g of rocephin in ED, will continue with current antibiotic regimen until urine cultures finalize Qualifiers: Qualified Code(s): N39.0 - Urinary tract infection, site not specified (5) Atrial fibrillation Current Visit: No Status: Chronic Assessment and plan: Patient with history of afib Irregular on my exam Continue home eliquis Qualifiers: Atrial fibrillation type: paroxysmal Qualified Code(s): I48.0 - Paroxysmal atrial fibrillation (6) Hyponatremia Current Visit: No Status: Acute Assessment and plan: Patient's Na of 130, slightly lower than baseline Continue normal saline IV fluid hydration (7) DVT prophylaxis Current Visit: No Status: Acute Assessment and plan: Continued home eliquis (8) CKD IIIl, Cr is stable Current Visit: Yes Status: Acute Assessment and plan: Patient with creatinine of 1.5, which appears to be around his baseline Continue IV fluid hydration Recheck CMP
[2019-03-21] MEDS: Insulin DETEMIR 100 UNIT/ML X5UNITS SQ SCH (21:45)
[2019-03-22] MEDS: 0.9 % Sodium Chloride 1,000 ML IVC SCH ×2 (02:00→20:56)
[2019-03-22] MEDS: cefTRIAXone 1,000 MG in Water for inj. (sterile) 20 ML 10 ML IVP SCH (05:41)
[2019-03-22 06:30] LABS: Basophils % 0.5 %; Eosinophils # 0.2 K/mcL (0.0-0.6); Eosinophils % 2.9 %; Hematocrit 40.6 % (37.5-50.1); Hemoglobin 13.8 g/dL (12.9-16.9); Lymphocytes # 1.4 K/mcL (0.6-4.6); Lymphocytes % 17.3 %; Mean Corpuscular Hemoglobin 30.4 pg (28.0-33.3); Mean Corpuscular Volume 89.4 fL (83.0-100.0); Mean Platelet Volume 10.9 fL (9.4-12.4); Monocytes # 0.9 K/mcL (0.0-1.3); Monocytes % 11.3 %; Neutrophils # 5.5 K/mcL (1.6-8.9); Platelet Count 265 K/mcL (140-400); Red Blood Count 4.54 M/mcL (4.19-5.50)
[2019-03-22 06:49] LABS: Alanine Aminotransferase 297 Units/L (7-52); Albumin 3.1 g/dL (3.5-5.7); Albumin/Globulin Ratio 0.9 (1.1-2.2); Alkaline Phosphatase 308 Units/L (34-104); Aspartate Amino Transferase 212 Units/L (13-39); BUN/Creatinine Ratio 17 (6-26); Bilirubin,Direct 0.3 mg/dL (0.0-0.2); Bilirubin,Indirect 1.3 mg/dL (0.0-1.2); Bilirubin,Total 1.6 mg/dL (0.3-1.0); Blood Urea Nitrogen 19 mg/dL (8-23); Calcium 8.9 mg/dL (8.6-10.3); Carbon Dioxide 27 mEq/L (23-29); Chloride 99 mEq/L (98-107); Chol/HDL Ratio 11.2 (0-4.9); Cholesterol 190 mg/dL (< 200); Globulin 3.4 g/dL (2.4-3.5); Glucose 154 mg/dL (70-105); HDL Cholesterol 17 mg/dL (40-59); LDL Cholesterol,Calculated 130 mg/dL (0-99); Osmolality,Calculated 281 (280-300); Potassium 4.2 mEq/L (3.5-5.1); Sodium 133 mEq/L (136-145); Total Protein 6.5 g/dL (6.4-8.9); Triglycerides 213 mg/dL (< 150); eGFR For Non-African Americans > 60 (> 60)
--- NOTE | 2019-03-22 09:46 | Internal Med Progress Note ---
Hospitalist Progress Note - Encounter Date of Encounter: 03/22/19 Time of Encounter: 09:44 - Subjective Interval History: Patient is doing okay, afebrile, sugar has been better controlled since admission. He stated he is hungry denies abdominal pain but he does have right upper quadrant tenderness. He has a Craven catheter placed on admission. we will DC the Craven catheter. - Exam Vitals: Temp Pulse Resp BP Pulse Ox 97.9 F 79 18 152/87 97 03/22/19 03:47 03/22/19 03:47 03/22/19 03:47 03/22/19 03:47 03/22/19 03:47 Exam: CONSTITUTIONAL: patient appears as an age appropriate male in no acute distress. EYES Clear sclerae, bilateral pupils are equal, reactive to light. EMOI. RESPIRATORY: No accessory muscle use, bilateral clear to auscultation, no whee zing, no crackles/rales. CARDIOVASCULAR: irRegular heart rate, normal S1 and S2, no murmurs GASTROINTESTINAL: bowel sounds present, soft, mild tenderness to RUQ MUSCULOSKELETAL: Joints in normal range of motion, no clubbing, no edema, no cyanosis. Bilateral peripheral pulses 2+. NEUROLOGIC: CN II to XII are grossly intact, no focal neurological deficit. - Summary of Assessment and Plan Summary of Assessment and Plan: Patient is a 58 years old male who has history of diabetes atrial fibrillation CHF CAD hyperlipidemia hypertension CK D stages 3 admitted for uncontrolled diabetes she has been running high. After admission he was found elevated LFTs. But the patient denies nausea vomiting no abdominal pain no right upper quadrant tenderness. He is afebrile. (1) DM type 2 with Hyperglycemia Current Visit: Yes Status: Acute Assessment and plan: Patient's initial glucose in ED was 380 better with home detemir 10 units BID, and SSI (2) Elevated LFTs CT abdomen/pelvis showed cholelithiasis, d/c statin Current Visit: Yes Status: Acute Assessment and plan: Patient with AST 159, ALT of 334, Alk phos 330 Positive HBsAg and Anti-Hep B core IgM, possible acute hepatitis B, will consult GI (2) Cholelithiasis US showed Cholelithiasis with gallbladder sludge. Gallbladder wall thickening. Possible trace pericholecystic fluid. Negative sonographic Combs's sign. HIDA scan is non-diagnostic, will do MRCP and consult surgery and GI (3) Generalized weakness , was on hospice at ,home Current Visit: Yes Status: Acute Assessment and plan: Patient with generalized weakness for 1 week Could be 2/2 hyperglycemia vs UTI vs other etiology Head CT showed diffuse cerebral atrophy with chronic small vessel ischemia Patient with lactic acid of 3.1, resolved to 1.8 (4) UTI (urinary tract infection) Current Visit: Yes Status: Acute Assessment and plan: Suspected UTI with positive leukocyte esterase on urinalysis Distended bladder with possible bladder outlet obstruction on abdominal/pelvis CT Patient given 1 g of rocephin in ED, will continue with current antibiotic regimen until urine cultures finalize Qualifiers: Qualified Code(s): N39.0 - Urinary tract infection, site not specified (5) Atrial fibrillation Current Visit: No Status: Chronic Assessment and plan: Patient with history of afib Irregular on my exam Continue home eliquis Qualifiers: Atrial fibrillation type: paroxysmal Qualified Code(s): I48.0 - Paroxysmal atrial fibrillation (6) Hyponatremia Current Visit: No Status: Acute Assessment and plan: Patient's Na of 130, slightly lower than baseline Continue normal saline IV fluid hydration (7) DVT prophylaxis Current Visit: No Status: Acute Assessment and plan: Continued home eliquis (8) CKD IIIl, Cr is stable Current Visit: Yes Status: Acute Assessment and plan: Patient with creatinine of 1.5, which appears to be around his baseline Continue IV fluid hydration Recheck CMP - Time Spent with Patient Total time spent is greater than 50% in coordination of care (as documented) at patient's floor/unit and/or counseling patient: Greater than 35 minutes Plan of Care Discussed with: patient Internal Medicine: Result - Labs CBC & Chem 7: 03/22/19 05:55 03/22/19 05:55 Labs: Short CBC 03/22/19 Range/Units 05:55 WBC 8.2 (4.3-11.1) K/mcL Hgb 13.8 (12.9-16.9) g/dL Hct 40.6 (37.5-50.1) % Plt Count 265 (140-400) K/mcL Neutrophils # 5.5 (1.6-8.9) K/mcL BMP 03/22/19 05:55 Sodium 133 L Potassium 4.2 Chloride 99 Carbon Dioxide 27 BUN 19 Creatinine 1.11 Glucose 154 H Calcium 8.9 Liver Function 05/10/19 Range/Units 05:55 Total Bilirubin 1.6 H (0.3-1.0) mg/dL Direct Bilirubin 0.3 H (0.0-0.2) mg/dL AST 212 H (13-39) Units/L ALT 297 H (7-52) Units/L Alkaline Phosphatase 308 H (34-104) Units/L Albumin 3.1 L (3.5-5.7) g/dL - ABG Interpretation ABG results: PT/INR, D-dimer PT 12.2 Seconds (9.4-12.1) H 03/21/19 06:13 - Impressions Impressions Abdomen/Pelvis CT 03/21/19 01:10 IMPRESSION: Cholelithiasis Increased density in the renal pyramids which may represent micro-calcinosis, renal tubular acidosis or other etiologies as previously discussed on the comparison study No evidence of obstructive uropathy Dilation of the bladder which may represent chronic outlet obstruction, please correlate clinically Age-indeterminate but new compression deformity of the L1 vertebral body Diverticulosis without evidence of diverticulitis D/ / 03/21/2019 07:34:17 Mike Flowers MD / hilda Interpreting Provider: Mike Flowers MD Liver Ultrasound 03/21/19 17:00 IMPRESSION: Cholelithiasis with gallbladder sludge. Gallbladder wall thickening. Possible trace pericholecystic fluid. Negative sonographic Combs's sign. Correlation with physical examination is recommended. If further imaging evaluation for acute cholecystitis is clinically warranted, HIDA scan may be obtained. The findings were sent to the [facility] at 6:06 pm on 03/21/2019to be communicated to a licensed caregiver. D/ / 03/21/2019 18:07:46 Jimmy Araujo MD / hilda Interpreting Provider: Jimmy Araujo MD Bile Acid Absorption NM 03/21/19 18:15 IMPRESSION: Nondiagnostic examination as the study was concluded prior to completion due to patient tolerance. D/ / Catalino Vogt MD / Catalino Vogt MD Interpreting Provider: Catalino Vogt MD Consult Discharge Plan - Plan Referrals: NONE,PCP [Primary Care Provider] -
[2019-03-22] MEDS ORDERED: *HR* Heparin 5,000 UNIT/ML VIAL SQ SCH (10:00)
[2019-03-22] MEDS: Finasteride 5 MG TABLET PO SCH (12:10)
[2019-03-22] MEDS: Apixaban 2.5 MG TABLET PO SCH ×2 (12:10→20:43)
[2019-03-22] MEDS: Aspirin Enteric Coated 81 MG Tablet PO SCH (12:10)
[2019-03-22] MEDS: Insulin DETEMIR 100 UNIT/ML X5UNITS SQ SCH ×3 (12:11→23:41)
[2019-03-22] MEDS: Insulin LISPRO 300 UNITS/3 ML VIAL SQ SCH ×5 (12:12→23:39)
--- NOTE | 2019-03-22 20:25 | AcuteCare Surgery Consult Note ---
Date of Encounter: 03/22/19 Time of Encounter: 20:22 Assessment and Plan (1) Symptomatic cholelithiasis Current Visit: Yes Status: Acute 84M with symptomatic cholelithiasis; non septic; HDS no surgery per patient's request please call if he changes his mind or if there are any new questions or concerns. History of Present Illness Consult date: 03/22/19 Reason for consult: abdominal pain History of present illness: 84M PMH of DM, afib, CHF, CAD, HLD, HTN who presents with right sided abdominal pain. there are no identifying alleviating or exacerbating factors, it is non radiating in nature. No reports of any systemic symptoms. Imaging was obtained demonstrated gallstones, but no evidence of acute cholecystitis. [facility] was consulted for management recommendations. of note the patient has had similar symptoms, but states that it usually resolves on its own. Of note, the patient states he is currently not having any pain and is not interested in surgery. He then ignores me for the rest of the interview and enjoys his dinner. Past Med Surg Social Fam HX - Past Medical History Medical history: atrial fibrillation, CHF, coronary artery disease, DVT, diabete s, hyperlipidemia, hypertension, myocardial infarction, peripheral artery disease, renal disease Psychiatric history: anxiety, depression - Past Surgical History Surgical History: angioplasty/stent, appendectomy, cholecystectomy, hip re placement, orthopedic, other Additional surgical history: plate in hip. 1 cardiac stent - Social History Smoking Status: Never smoker Smokeless Tobacco Status: Yes Alcohol use: none Drug use: none - Family History Mother Living Status: Father Living Status: Medications and Allergies Aspirin [Lo-Dose Aspirin EC] 81 mg PO DAILY 12/24/17 [History] Citalopram [CeleXA] 20 mg PO DAILY 12/24/17 [History] Ferrous Sulfate [Iron] 325 mg PO DAILY 12/24/17 [History] Finasteride [Proscar] 5 mg PO DAILY 12/24/17 [History] Tamsulosin [Flomax] 0.4 mg PO DAILY 12/24/17 [History] Tramadol HCl [Ultram] 50 mg PO BID PRN 12/24/17 [History] Metoclopramide HCl 5 mg PO TID PRN 03/02/18 [History] Insulin DETEMIR [Levemir] 10 unit SQ BID #50 [id number] 03/05/18 [Rx] Apixaban [Eliquis] 2.5 mg PO BID 01/18/19 [History] Insulin LISPRO [Admelog] 8 unit SQ TIDWM 01/18/19 [History] Polyethylene Glycol 3350 [MiraLAX] 17 gm PO DAILY PRN 02/19/19 [History] Furosemide [Lasix] 40 mg PO BID 03/21/19 [History] LORazepam [Ativan] 0.5 mg PO Q4H PRN 03/21/19 [History] Allergy/AdvReac Type Severity Reaction Status Date / Time clopidogrel [From Plavix] Allergy See Verified 03/21/19 15:51 Comments phenobarbital Allergy See Verified 03/21/19 15:51 Comments Review of Systems All systems PM: 12 Point ROS negative besides HPI findings General Surgery Exam Initial Vital Signs Temp Pulse Resp BP Pulse Ox 97.5 F L 75 24 116/68 100 03/20/19 23:53 03/20/19 23:53 03/20/19 23:53 03/20/19 23:53 03/20/19 23:53 - General physical appearance no distress - Eyes normal ocular movement - ENT normocephalic - Neck trachea midline, no lymphadectomy - Respiratory normal expansion, normal respiratory effort - Cardiovascular Cardiovascular exam: Present: RRR - Abdomen Abdomen general surgery: Present: soft - Integumentary Integumentary general surgery: Present: warm and dry - Neurologic Present: CN 2-12 grossly intact - Musculoskeletal Present: normal posture - Psychiatric Psychiatric general surgery: Present: A&Ox3 Exam Initial Vital Signs Temp Pulse Resp BP Pulse Ox 97.5 F L 75 24 116/68 100 03/20/19 23:53 03/20/19 23:53 03/20/19 23:53 03/20/19 23:53 03/20/19 23:53 Results - Labs 03/22/19 05:55 03/22/19 05:55 Abnormal lab results PT 12.2 Seconds (9.4-12.1) H 03/21/19 06:13 VBG pH 7.47 pH Units (7.32-7.42) H 03/21/19 00:41 VBG pCO2 35 mmHg (41-51) L 03/21/19 00:41 Sodium 133 mEq/L (136-145) L 03/22/19 05:55 Chloride 94 mEq/L (98-107) L 03/21/19 00:15 BUN 29 mg/dL (8-23) H 03/21/19 06:13 1.37 mg/dL (0.70-1.30) H 03/21/19 06:13 Est GFR ( Amer) 54 (> 60) L 03/21/19 00:15 Est GFR (Non-Af Amer) 49 (> 60) L 03/21/19 06:13 Glucose 154 mg/dL (70-105) H 03/22/19 05:55 POC Glucose 161 mg/dL (70-99) H 03/22/19 05:10 Lactic Acid 3.1 mmol/L (0.5-2.2) H 03/21/19 00:15 Calcium 8.2 mg/dL (8.6-10.3) L 03/21/19 06:13 1.6 mg/dL (0.3-1.0) H 03/22/19 05:55 0.3 mg/dL (0.0-0.2) H 03/22/19 05:55 1.3 mg/dL (0.0-1.2) H 03/22/19 05:55 AST 212 Units/L (13-39) H 03/22/19 05:55 ALT 297 Units/L (7-52) H 03/22/19 05:55 308 Units/L (34-104) H 03/22/19 05:55 6.0 g/dL (6.4-8.9) L 03/21/19 06:13 3.7 g/dL (2.4-3.5) H 03/21/19 00:15 3.1 g/dL (3.5-5.7) L 03/22/19 05:55 0.9 (1.1-2.2) L 03/22/19 05:55 Triglycerides 213 mg/dL (< 150) H 03/22/19 05:55 LDL Cholesterol, Calc 130 mg/dL (0-99) H 03/22/19 05:55 VLDL Cholesterol, Calc 43 mg/dL (< 31) H 03/22/19 05:55 17 mg/dL (40-59) L 03/22/19 05:55 11.2 (0-4.9) H 03/22/19 05:55 Beta-Hydroxybutyric Acd 0.45 mmol/L (0.02-0.27) H 03/21/19 00:15 30 mg/dL (Neg-Trace) H 03/21/19 01:36 >=1000 mg/dL (Normal) H 03/21/19 01:36 Ur Leukocyte Esterase Moderate (Negative) H 03/21/19 01:36 15-30 per hpf (0-3) H 03/21/19 01:36 Ur Squamous Epith Cells Many per lpf (None-Few) H 03/21/19 01:36 Ur Culture Indicated? YES (NO) A 03/21/19 01:36 Acetaminophen < 10 mcg/mL (10-20) L 03/21/19 06:13 Hep Bs Antigen Reactive (Nonreactive) H 03/21/19 00:15 Hep B Core IgM Ab Reactive (Nonreactive) H 03/21/19 00:15 Diabetes panel 03/22/19 Range/Units 05:55 Sodium 133 L (136-145) mEq/L Potassium 4.2 (3.5-5.1) mEq/L Chloride 99 (98-107) mEq/L Carbon Dioxide 27 (23-29) mEq/L BUN 19 (8-23) mg/dL Creatinine 1.11 (0.70-1.30) mg/dL Glucose 154 H (70-105) mg/dL Calcium 8.9 (8.6-10.3) mg/dL AST 212 H (13-39) Units/L ALT 297 H (7-52) Units/L Alkaline Phosphatase 308 H (34-104) Units/L Albumin 3.1 L (3.5-5.7) g/dL Triglycerides 213 H (< 150) mg/dL HDL Cholesterol 17 L (40-59) mg/dL Calcium panel 03/22/19 Range/Units 05:55 Calcium 8.9 (8.6-10.3) mg/dL Albumin 3.1 L (3.5-5.7) g/dL Pituitary panel 03/22/19 Range/Units 05:55 Sodium 133 L (136-145) mEq/L Potassium 4.2 (3.5-5.1) mEq/L Chloride 99 (98-107) mEq/L Carbon Dioxide 27 (23-29) mEq/L BUN 19 (8-23) mg/dL Creatinine 1.11 (0.70-1.30) mg/dL Glucose 154 H (70-105) mg/dL Calcium 8.9 (8.6-10.3) mg/dL Adrenal panel 03/22/19 Range/Units 05:55 Sodium 133 L (136-145) mEq/L Potassium 4.2 (3.5-5.1) mEq/L Chloride 99 (98-107) mEq/L Carbon Dioxide 27 (23-29) mEq/L BUN 19 (8-23) mg/dL Creatinine 1.11 (0.70-1.30) mg/dL Glucose 154 H (70-105) mg/dL Calcium 8.9 (8.6-10.3) mg/dL Total Bilirubin 1.6 H (0.3-1.0) mg/dL AST 212 H (13-39) Units/L ALT 297 H (7-52) Units/L Alkaline Phosphatase 308 H (34-104) Units/L Albumin 3.1 L (3.5-5.7) g/dL All other labs normal. - Imaging CT scan - abdomen: report reviewed, image reviewed CT scan - pelvis: report reviewed, image reviewed Consult Discharge Plan - Plan Referrals: NONE,PCP [Primary Care Provider] -
[2019-03-22] MEDS: traMADol 50 MG TABLET PO PRN (20:53)
[2019-03-23 03:29] LABS: Basophils % 0.4 %; Eosinophils # 0.1 K/mcL (0.0-0.6); Eosinophils % 1.9 %; Hematocrit 35.5 % (37.5-50.1); Immature Granulocytes % 0.8 % (0-4); Lymphocytes # 1.2 K/mcL (0.6-4.6); Lymphocytes % 15.9 %; Mean Corpuscular HGB Conc 34.1 g/dL (31.6-35.5); Mean Corpuscular Hemoglobin 30.6 pg (28.0-33.3); Mean Corpuscular Volume 89.6 fL (83.0-100.0); Monocytes % 13.8 %; Neutrophils # 5.1 K/mcL (1.6-8.9); Platelet Count 221 K/mcL (140-400); Red Blood Count 3.96 M/mcL (4.19-5.50); Red Cell Distribution Width 13.9 % (11.5-14.5); Segmented Neutrophils % 67.2 %
[2019-03-23 03:30] LABS: Hemoglobin 12.1 g/dL (12.9-16.9)
[2019-03-23 04:00] LABS: Alanine Aminotransferase 235 Units/L (7-52); Albumin 2.5 g/dL (3.5-5.7); Albumin/Globulin Ratio 0.9 (1.1-2.2); Alkaline Phosphatase 247 Units/L (34-104); Aspartate Amino Transferase 178 Units/L (13-39); BUN/Creatinine Ratio 15 (6-26); Bilirubin,Direct 0.2 mg/dL (0.0-0.2); Bilirubin,Indirect 1.2 mg/dL (0.0-1.2); Bilirubin,Total 1.4 mg/dL (0.3-1.0); Blood Urea Nitrogen 14 mg/dL (8-23); Calcium 7.7 mg/dL (8.6-10.3); Carbon Dioxide 22 mEq/L (23-29); Chloride 102 mEq/L (98-107); Globulin 2.9 g/dL (2.4-3.5); Glucose 227 mg/dL (70-105); Osmolality,Calculated 276 (280-300); Potassium 3.9 mEq/L (3.5-5.1); Sodium 129 mEq/L (136-145); Total Protein 5.4 g/dL (6.4-8.9); eGFR For Non-African Americans > 60 (> 60)
[2019-03-23] MEDS: 0.9 % Sodium Chloride 1,000 ML IVC SCH ×3 (05:27→18:09)
[2019-03-23] MEDS: cefTRIAXone 1,000 MG in Water for inj. (sterile) 20 ML 10 ML IVP SCH (05:27)
[2019-03-23] MEDS: Insulin LISPRO 300 UNITS/3 ML VIAL SQ SCH ×4 (08:13→22:00)
[2019-03-23] MEDS: Apixaban 2.5 MG TABLET PO SCH ×2 (09:20→22:00)
[2019-03-23] MEDS: Aspirin Enteric Coated 81 MG Tablet PO SCH (09:20)
[2019-03-23] MEDS: Finasteride 5 MG TABLET PO SCH (09:20)
[2019-03-23] MEDS: Insulin DETEMIR 100 UNIT/ML X5UNITS SQ SCH ×2 (09:20→22:00)
--- NOTE | 2019-03-23 09:21 | Internal Med Progress Note ---
Hospitalist Progress Note - Encounter Date of Encounter: 03/23/19 Time of Encounter: 09:18 - Subjective Interval History: Patient is alert oriented 3, he denies any abdominal pain nausea vomiting. He has been tolerating clear diet. I discussed the surgical options per surgery recommendation. patient stated that he does not want any kind of surgery. He said that he had the surgery long time ago to his right hip but now he feels that he already had cut enough he does not want have any surgery. We discussed to advance his to the regular diet, will check him enzymes over the weekend, if he changes mind, we will give surgery a call. He lives with his son, he does not want us to call his son, he said he make his own decision. - Exam Vitals: Temp Pulse Resp BP Pulse Ox 97.9 F 78 16 108/61 95 03/23/19 06:46 03/23/19 06:46 03/23/19 06:46 03/23/19 06:46 03/23/19 06:46 Exam: CONSTITUTIONAL: patient appears as an age appropriate male in no acute dist ress. EYES Clear sclerae, bilateral pupils are equal, reactive to light. EMOI. RESPIRATORY: No accessory muscle use, bilateral clear to auscultation, no wheezing, no crackles/rales. CARDIOVASCULAR: irRegular heart rate, normal S1 and S2, no murmurs GASTROINTESTINAL: bowel sounds present, soft, mild tenderness to RUQ MUSCULOSKELETAL: Joints in normal range of motion, no clubbing, no edema, no cyanosis. Bilateral peripheral pulses 2+. NEUROLOGIC: CN II to XII are grossly intact, no focal neurological deficit. DVT Prophylaxis: on Eliquis - Summary of Assessment and Plan Summary of Assessment and Plan: Patient is a 58 years old male who has history of diabetes atrial fibrillation CHF CAD hyperlipidemia hypertension CK D stages 3 admitted for uncontrolled diabetes she has been running high. After admission he was found elevated LFTs. But the patient denies nausea vomiting no abdominal pain no right upper quadrant tenderness. He is afebrile. (1) DM type 2 with Hyperglycemia Current Visit: Yes Status: Acute Assessment and plan: Patient's initial glucose in ED was 380 better with home detemir 10 units BID, and SSI (2) Elevated LFTs/? hep B CT abdomen/pelvis showed cholelithiasis, d/c statin Current Visit: Yes Status: Acute Assessment and plan: Patient with AST 159, ALT of 334, Alk phos 330 Positive HBsAg and Anti-Hep B core IgM, possible acute hepatitis B, will consult GI pending, I called on Monday, did not goet call back, please call GI again (2) Cholelithiasis US showed Cholelithiasis with gallbladder sludge. Gallbladder wall thickening. Possible trace pericholecystic fluid. Negative sonographic Combs's sign. HIDA scan is non-diagnostic, MRCP showed Limited by motion. There are questionable tiny 1-2 mm filling defects seen in the common duct on images 13 and 14, of the coronal T2 images. This appearance could be artifact or be secondary to tiny stones-areas of nodular sludge. No significant biliary ductal dilatation T1 compression fracture. Please see CT report (3) Generalized weakness , was on hospice at ,home Current Visit: Yes Status: Acute Assessment and plan: Patient with generalized weakness for 1 week Could be 2/2 hyperglycemia vs UTI vs other etiology Head CT showed diffuse cerebral atrophy with chronic small vessel ischemia Patient with lactic acid of 3.1, resolved to 1.8 (4) UTI (urinary tract infection) Current Visit: Yes Status: Acute Assessment and plan: Suspected UTI with positive leukocyte esterase on urinalysis Distended bladder with possible bladder outlet obstruction on abdominal/pelvis CT Urine culture showed contamination will recheck UA if improves may d/c ATB Qualifiers: Qualified Code(s): N39.0 - Urinary tract infection, site not specified (5) Atrial fibrillation Current Visit: No Status: Chronic Assessment and plan: Patient with history of afib Irregular on my exam Continue home eliquis Qualifiers: Atrial fibrillation type: paroxysmal Qualified Code(s): I48.0 - Paroxysmal atrial fibrillation (6) Hyponatremia Current Visit: No Status: Acute Assessment and plan: Patient's Na of 130, slightly lower than baseline Continue normal saline IV fluid hydration (7) DVT prophylaxis Current Visit: No Status: Acute Assessment and plan: Continued home eliquis (8) CKD III Cr is stable, improved Current Visit: Yes Status: Acute Assessment and plan: DIsposition, pending GI consult for elevated LFTs, positive hep B, he refused cholecystectomy, will advance diet, and follow up LFTs, if clinically deteriorating, then need to call surgery, Home hospice Monday after GI consult - Time Spent with Patient Total time spent is greater than 50% in coordination of care (as documented) at patient's floor/unit and/or counseling patient: 25 - 35 minutes Plan of Care Discussed with: patient Internal Medicine: Result - Labs CBC & Chem 7: 03/23/19 03:14 03/23/19 03:14 Labs: Short CBC 03/23/19 Range/Units 03:14 WBC 7.5 (4.3-11.1) K/mcL Hgb 12.1 L D (12.9-16.9) g/dL Hct 35.5 L (37.5-50.1) % Plt Count 221 (140-400) K/mcL Neutrophils # 5.1 (1.6-8.9) K/mcL BMP 03/23/19 03:14 Sodium 129 L Potassium 3.9 Chloride 102 Carbon Dioxide 22 L BUN 14 Creatinine 0.95 Glucose 227 H Calcium 7.7 L Liver Function 03/23/19 Range/Units 03:14 Total Bilirubin 1.4 H (0.3-1.0) mg/dL Direct Bilirubin 0.2 (0.0-0.2) mg/dL AST 178 H (13-39) Units/L ALT 235 H (7-52) Units/L Alkaline Phosphatase 247 H (34-104) Units/L Albumin 2.5 L (3.5-5.7) g/dL - ABG Interpretation ABG results: PT/INR, D-dimer PT 12.2 Seconds (9.4-12.1) H 03/21/19 06:13 - Impressions Impressions Liver Ultrasound 03/21/19 17:00 IMPRESSION: Cholelithiasis with gallbladder sludge. Gallbladder wall thickening. Possible trace pericholecystic fluid. Negative sonographic Combs's sign. Correlation with physical examination is recommended. If further imaging evaluation for acute cholecystitis is clinically warranted, HIDA scan may be obtained. The findings were sent to the [facility] at 6:06 pm on 03/21/2019to be communicated to a licensed caregiver. D/ /21/2019 18:07:46 Jimmy Araujo MD / hilda Interpreting Provider: Jimmy Araujo MD Abdomen MRI 03/22/19 09:56 IMPRESSION: Limited by motion. There are questionable tiny 1-2 mm filling defects seen in the common duct on images 13 and 14, of the coronal T2 images. This appearance could be artifact or be secondary to tiny stones-areas of nodular sludge. No significant biliary ductal dilatation T1 compression fracture. Please see CT report D/ / Ruddy Ruiz MD / Ruddy Ruiz MD Interpreting Provider: Ruddy Ruiz MD Consult Discharge Plan - Plan Referrals: NONE,PCP [Primary Care Provider] -
[2019-03-23 11:18] LABS: Bilirubin,Urine Negative (Negative); Blood,Urine Large (Negative); Clarity,Urine Clear (Clear); Color,Urine Yellow (Yellow); Glucose,Urine (UA) 500 mg/dL (Normal); Ketones,Urine Negative (Negative); Leukocyte Esterase,Urine Trace (Negative); Nitrite,Urine Negative (Negative); Protein,Urine 100 mg/dL (Neg-Trace); Specific Gravity,Urine 1.014 (1.010-1.025)
[2019-03-23 11:21] LABS: Bacteria,Urine None Seen per hpf (None-Few); Hyaline Casts,Urine None Seen per lpf (None-Few); RBC,Urine TNTC per hpf (0-3); Squamous Epithelial Cell,Urine Few per lpf (None-Few)
[2019-03-23] MEDS: traMADol 50 MG TABLET PO PRN (21:59)
[2019-03-24] MEDS: 0.9 % Sodium Chloride 1,000 ML IVC SCH (05:42)
[2019-03-24] MEDS: cefTRIAXone 1,000 MG in Water for inj. (sterile) 20 ML 10 ML IVP SCH (05:43)
[2019-03-24] MEDS: Apixaban 2.5 MG TABLET PO SCH ×2 (07:54→22:17)
[2019-03-24] MEDS: Insulin DETEMIR 100 UNIT/ML X5UNITS SQ SCH (07:54)
[2019-03-24] MEDS: Insulin LISPRO 300 UNITS/3 ML VIAL SQ SCH ×4 (07:54→17:30)
[2019-03-24] MEDS: Aspirin Enteric Coated 81 MG Tablet PO SCH (07:54)
[2019-03-24] MEDS: Finasteride 5 MG TABLET PO SCH (07:54)
[2019-03-24 10:02] LABS: Basophils % 0.6 %; Eosinophils # 0.2 K/mcL (0.0-0.6); Eosinophils % 2.8 %; Hematocrit 37.6 % (37.5-50.1); Hemoglobin 12.2 g/dL (12.9-16.9); Lymphocytes # 1.1 K/mcL (0.6-4.6); Lymphocytes % 17.7 %; Mean Corpuscular HGB Conc 32.4 g/dL (31.6-35.5); Mean Corpuscular Volume 92.4 fL (83.0-100.0); Mean Platelet Volume 10.6 fL (9.4-12.4); Monocytes % 15.7 %; Neutrophils # 3.8 K/mcL (1.6-8.9); Platelet Count 203 K/mcL (140-400); Red Blood Count 4.07 M/mcL (4.19-5.50); Red Cell Distribution Width 14.3 % (11.5-14.5); Segmented Neutrophils % 62.2 %
[2019-03-24 10:24] LABS: Alanine Aminotransferase 242 Units/L (7-52); Albumin 2.6 g/dL (3.5-5.7); Albumin/Globulin Ratio 0.9 (1.1-2.2); Alkaline Phosphatase 252 Units/L (34-104); Aspartate Amino Transferase 237 Units/L (13-39); BUN/Creatinine Ratio 10 (6-26); Bilirubin,Direct 0.3 mg/dL (0.0-0.2); Bilirubin,Indirect 0.8 mg/dL (0.0-1.2); Bilirubin,Total 1.1 mg/dL (0.3-1.0); Blood Urea Nitrogen 10 mg/dL (8-23); Calcium 8.2 mg/dL (8.6-10.3); Carbon Dioxide 25 mEq/L (23-29); Chloride 104 mEq/L (98-107); Globulin 2.8 g/dL (2.4-3.5); Glucose 232 mg/dL (70-105); Osmolality,Calculated 282 (280-300); Sodium 133 mEq/L (136-145); Total Protein 5.4 g/dL (6.4-8.9); eGFR For Non-African Americans > 60 (> 60)
--- NOTE | 2019-03-24 12:38 | Internal Med Progress Note ---
Hospitalist Progress Note - Encounter Date of Encounter: 03/24/19 Time of Encounter: 12:36 - Subjective Interval History: I have seen and evaluated the patient at bedside. Patient reports no distress. denies nausea, vomiting, or abdominal pain. denies chest pain or shortness of breath. - Exam Vitals: Temp Pulse Resp BP Pulse Ox 98.3 F 72 16 166/84 93 03/24/19 11:31 03/24/19 11:31 03/24/19 11:31 03/24/19 11:31 03/24/19 11:31 Exam: Vitals: reviewed General: Alert and oriented x3. In no distress Cardiovascular: Irregularly irregular, normal S1 & S2, no rubs, murmurs or gallops. Lungs: CTA b/l, no wheezes or crackles. Abdomen: Soft, non-tender, no rigidity. Hepatomegaly Extremities: No deformity, no edema or tenderness, no joint swelling or clubbing. Neurological: No focal neurological deficits Rest of the physical exam is non contributory - Assessment and Plan (1) Elevated LFTs Current Visit: Yes Status: Acute Assessment and Plan: LFts continue to trend up. possible secondary to possible Hepatitis B. will trend LFts. GI has been consulted. Hep B Quant PRC ordered. (2) Generalized weakness Current Visit: Yes Status: Acute Assessment and Plan: possible secondary to possible acute hepatitis B. Pt/OT ordered (3) Atrial fibrillation Current Visit: No Status: Chronic Assessment and Plan: Rate control. off any rate controlled medication. on apixaban for secondary stroke prevention. continue telemetry monitoring (4) Hyponatremia Current Visit: No Status: Resolved (5) UTI (urinary tract infection) Current Visit: Yes Status: Resolved Assessment and Plan: will continue ceftriaxone to complete 5 days of treatment. urine culture: no growth. (6) HLD (hyperlipidemia) Current Visit: Yes Status: Chronic Assessment and Plan: consider starting a statin as outpatient. (7) Acute kidney injury Current Visit: No Status: Resolved Assessment and Plan: discontinue IV fluids. avoid nephrotoxic medications (8) CAD (coronary artery disease) Current Visit: No Status: Chronic Assessment and Plan: Continue aspirin 81 mg by mouth daily. (9) Hypertension Current Visit: No Status: Chronic Assessment and Plan: Blood pressure suboptimally controlled. Started on furosemide 40 mg by mouth daily. (10) Systolic CHF, chronic Current Visit: No Status: Chronic Assessment and Plan: Estimated ejection fraction on 01/10/18 of 30-35%. will repeat TTE to evaluate progression of CHF IV fluids discontinue will resume furosemide 40mg/PO daily consider adding a bb following echo report 2 gram sodium diet. (11) Diabetes Current Visit: Yes Status: Chronic Assessment and Plan: blood sugar is sub-optimally controlled. levemir increased to 15 units BID, lispro 4 units ac added. continue lispro low dose sliding scale. plus carb controlled diet. (12) Symptomatic cholelithiasis Current Visit: Yes Status: Acute Assessment and Plan: patient denies abdominal pain. he is tolerating oral diet MR/MR abdomen wo con IMPRESSION: Limited by motion. There are questionable tiny 1-2 mm filling defects seen in the common duct on images 13 and 14, of the coronal T2 images. This appearance could be artifact or be secondary to tiny stones-areas of nodular sludge. No significant biliary ductal dilatation Plan patient refused surgical intervention GI consulted. DVT Prophylaxis: patient on apixaban - Summary of Assessment and Plan Summary of Assessment and Plan: patient to remain in the hospital due to transaminitis. possible hepatitis B. potential discharge tomorrow morning. - Time Spent with Patient Total time spent is greater than 50% in coordination of care (as documented) at patient's floor/unit and/or counseling patient: Greater than 35 minutes (45) Plan of Care Discussed with: patient (and the nurse.) Internal Medicine: Result - Labs CBC & Chem 7: 03/24/19 09:45 03/24/19 09:45 Labs: Short CBC 03/24/19 Range/Units 09:45 WBC 6.2 (4.3-11.1) K/mcL Hgb 12.2 L (12.9-16.9) g/dL Hct 37.6 (37.5-50.1) % Plt Count 203 (140-400) K/mcL Neutrophils # 3.8 (1.6-8.9) K/mcL BMP 03/24/19 09:45 Sodium 133 L Potassium 4.0 Chloride 104 Carbon Dioxide 25 BUN 10 Creatinine 1.04 Glucose 232 H Calcium 8.2 L Liver Function 03/24/19 Range/Units 09:45 Total Bilirubin 1.1 H (0.3-1.0) mg/dL Direct Bilirubin 0.3 H (0.0-0.2) mg/dL AST 237 H (13-39) Units/L ALT 242 H (7-52) Units/L Alkaline Phosphatase 252 H (34-104) Units/L Albumin 2.6 L (3.5-5.7) g/dL - ABG Interpretation ABG results: PT/INR, D-dimer PT 12.2 Seconds (9.4-12.1) H 03/21/19 06:13 Consult Discharge Plan - Plan Referrals: NONE,PCP [Primary Care Provider] - (3) Atrial fibrillation Qualifiers: Atrial fibrillation type: paroxysmal Qualified Code(s): I48.0 - Paroxysmal atrial fibrillation (5) UTI (urinary tract infection) Qualifiers: Urinary tract infection type: site unspecified Hematuria presence: without hematuria Qualified Code(s): N39.0 - Urinary tract infection, site not specified (6) HLD (hyperlipidemia) Qualifiers: Hyperlipidemia type: unspecified Qualified Code(s): E78.5 - Hyperlipidemia, unspecified (8) CAD (coronary artery disease) Qualifiers: Coronary Disease-Associated Artery/Lesion type: [place] artery [place] vs. transplanted heart: [place] heart Associated angina: without angina Qualified Code(s): I25.10 - Atherosclerotic heart disease of [place] coronary artery without angina pectoris (9) Hypertension Qualifiers: Hypertension type: essential hypertension Qualified Code(s): I10 - Essential (primary) hypertension (11) Diabetes Qualifiers: Diabetes mellitus type: type 2 Diabetes mellitus complication status: with unspecified complications
[2019-03-24] MEDS ORDERED: Perflutren Lipid Microsphere 1.3 ML in 0.9 % Sodium Chloride 8.7 ML IVP ONE (15:40)
[2019-03-24] MEDS: Furosemide 40 MG TABLET PO SCH (15:42)
[2019-03-24] MEDS ORDERED: Insulin DETEMIR 100 UNIT/ML X5UNITS SQ SCH (21:00)
[2019-03-24] MEDS: traMADol 50 MG TABLET PO PRN (22:17)
[2019-03-25] MEDS: 0.9 % Sodium Chloride 1,000 ML IVC SCH (05:39)
[2019-03-25] MEDS: cefTRIAXone 1,000 MG in Water for inj. (sterile) 20 ML 10 ML IVP SCH (05:46)
[2019-03-25 06:09] LABS: Alanine Aminotransferase 287 Units/L (7-52); Albumin 2.7 g/dL (3.5-5.7); Albumin/Globulin Ratio 0.9 (1.1-2.2); Alkaline Phosphatase 269 Units/L (34-104); Aspartate Amino Transferase 323 Units/L (13-39); BUN/Creatinine Ratio 12 (6-26); Bilirubin,Direct 0.3 mg/dL (0.0-0.2); Bilirubin,Indirect 0.8 mg/dL (0.0-1.2); Bilirubin,Total 1.1 mg/dL (0.3-1.0); Blood Urea Nitrogen 14 mg/dL (8-23); Calcium 8.5 mg/dL (8.6-10.3); Carbon Dioxide 27 mEq/L (23-29); Chloride 102 mEq/L (98-107); Globulin 2.9 g/dL (2.4-3.5); Glucose 51 mg/dL (70-105); Magnesium 1.9 mg/dL (1.6-2.6); Osmolality,Calculated 278 (280-300); Phosphorous 3.7 mg/dL (2.7-4.5); Potassium 4.1 mEq/L (3.5-5.1); Sodium 135 mEq/L (136-145); Total Protein 5.6 g/dL (6.4-8.9); eGFR For Non-African Americans > 60 (> 60)
[2019-03-25] MEDS: Insulin LISPRO 300 UNITS/3 ML VIAL SQ SCH ×6 (07:26→16:51)
[2019-03-25] MEDS: Furosemide 40 MG TABLET PO SCH (10:33)
[2019-03-25] MEDS: Apixaban 2.5 MG TABLET PO SCH ×2 (10:33→20:16)
[2019-03-25] MEDS: Insulin DETEMIR 100 UNIT/ML X5UNITS SQ SCH ×2 (10:33→20:16)
[2019-03-25] MEDS: Aspirin Enteric Coated 81 MG Tablet PO SCH (10:33)
[2019-03-25] MEDS: Finasteride 5 MG TABLET PO SCH (10:34)
--- NOTE | 2019-03-25 12:40 | Internal Med Progress Note ---
Hospitalist Progress Note - Encounter Date of Encounter: 03/25/19 Time of Encounter: 09:30 - Subjective Interval History: events overnight. Denies any abdominal pain, jaundice, fever/chills, or nausea/vomiting. - Exam Vitals: Temp Pulse Resp BP Pulse Ox 98.0 F 72 18 126/62 97 03/25/19 10:54 03/25/19 10:54 03/25/19 10:54 03/25/19 10:54 03/25/19 10:54 Exam: Vitals: reviewed General: Alert and oriented x3. In no distress Eyes: No scleral icterus Cardiovascular: Irregularly irregular, normal S1 & S2, no rubs, murmurs or gallops. Lungs: CTA b/l, no wheezes or crackles. Abdomen: Soft, non-tender, Combs's -ve Extremities: No deformity, no edema or tenderness, no joint swelling or clubbing. Neurological: No focal neurological deficits - Assessment and Plan (1) Elevated LFTs Current Visit: Yes Status: Acute Assessment and Plan: due to hepatitis B, LFTs continue to trend up. continue to trend LFT MRI showed questionable 1-2 mm filling defect in CBD ?significance follow with GI (2) Symptomatic cholelithiasis Current Visit: Yes Status: Acute Assessment and Plan: appreciate surgery eval, patient refused surgical intervention (3) Acute kidney injury Current Visit: No Status: Resolved Assessment and Plan: resolved with IVF (4) UTI (urinary tract infection) Current Visit: Yes Status: Resolved Assessment and Plan: completed 5 days of IV Rocephin today (5) Atrial fibrillation Current Visit: No Status: Chronic Assessment and Plan: continue apixaban (6) Systolic CHF, chronic Current Visit: No Status: Chronic Assessment and Plan: Echocardiogram showed EF of 30-35% which is unchanged since 12/2017 continue lasix would consider discharging him on low dose bb (7) Hypertension Current Visit: No Status: Chronic Assessment and Plan: consider starting bb at the time of discharge, currently controlled (8) CAD (coronary artery disease) Current Visit: No Status: Chronic Assessment and Plan: resume home meds (9) Diabetes Current Visit: Yes Status: Chronic Assessment and Plan: continue basal-bolus insulin, will decrease levemir to 12U BID in view of hypoglycemia in the morning DVT Prophylaxis: on apixaban - Time Spent with Patient Total time spent is greater than 50% in coordination of care (as documented) at patient's floor/unit and/or counseling patient: 25 - 35 minutes Plan of Care Discussed with: patient Internal Medicine: Result - Labs CBC & Chem 7: 03/24/19 09:45 03/25/19 04:58 Labs: BMP 03/25/19 04:58 Sodium 135 L Potassium 4.1 Chloride 102 Carbon Dioxide 27 BUN 14 Creatinine 1.13 Glucose 51 L Calcium 8.5 L Liver Function 03/25/19 Range/Units 04:58 Total Bilirubin 1.1 H (0.3-1.0) mg/dL Direct Bilirubin 0.3 H (0.0-0.2) mg/dL AST 323 H (13-39) Units/L ALT 287 H (7-52) Units/L Alkaline Phosphatase 269 H (34-104) Units/L Albumin 2.7 L (3.5-5.7) g/dL - ABG Interpretation ABG results: PT/INR, D-dimer PT 12.2 Seconds (9.4-12.1) H 03/21/19 06:13 - Impressions Impressions Echocardiogram 03/24/19 12:47 Impressions: LVEF 30-35%. Severe global and segmental left ventricular systolic dysfunction. Indeterminate diastolic function. Mildly dilated right ventricle with moderate right ventricular hypokinesis Severe biatrial enlargement. Mild mitral regurgitation. Unable to estimate RVSP due to lack of TR jet. Left Ventricular Wall Motion: Rest Echo Findings The mid inferior, basal inferior, mid anterior, basal anterior, basal inferior septal, basal anterior lateral, basal anterior septal and basal inferior lateral metz were hypokinetic. The apex, apical inferior, apical anterior, apical septal and apical lateral metz were akinetic. The mid inferior septal, mid anterior lateral, mid anterior septal and mid inferior lateral metz were not visualized. Findings: Study Quality * Technically sub-optimal due to poor echocardiographic windows. ECG Findings * Atrial fibrillation with BBB. * . Left Ventricle * LVEF 30-35%. Severe global and segmental left ventricular systolic dysfunction. * Mildly dilated left ventricle. * Severe global and segmental left ventricular systolic dysfunction. * Indeterminate diastolic function. * There is no LV thrombus. * Definity echo contrast was used. * Atypical septal motion consistent with bundle branch block. Right Ventricle * Mildly dilated right ventricle with moderate right ventricular hypokinesis * . Left Atrium * Severely dilated left atrium. Right Atrium * Severely dilated right atrium. Aortic Valve * Aortic valve not well visualized. * Moderately sclerotic aortic valve leaflets. * No aortic stenosis. * No aortic regurgitation. Mitral Valve * Mild mitral regurgitation. * Mild mitral annular calcification * No mitral stenosis. * Normal mitral valve structure. Tricuspid Valve * Trace tricuspid regurgitation. * No tricuspid stenosis. * Unable to estimate RVSP due to lack of TR jet. * Normal tricuspid valve structure. Aorta * Normally sized aortic root. Pericardium * The pericardium appears normal. IVC * The IVC is dilated. Consult Discharge Plan - Plan Referrals: NONE,PCP [Primary Care Provider] - (4) UTI (urinary tract infection) Qualifiers: Urinary tract infection type: site unspecified Hematuria presence: without h ematuria Qualified Code(s): N39.0 - Urinary tract infection, site not specified (5) Atrial fibrillation Qualifiers: Atrial fibrillation type: paroxysmal Qualified Code(s): I48.0 - Paroxysmal atrial fibrillation (7) Hypertension Qualifiers: Hypertension type: essential hypertension Qualified Code(s): I10 - Essential (primary) hypertension (8) CAD (coronary artery disease) Qualifiers: Coronary Disease-Associated Artery/Lesion type: [place] artery [place] vs. transplanted heart: [place] heart Associated angina: without angina Qualified Code(s): I25.10 - Atherosclerotic heart disease of [place] coronary artery without angina pectoris (9) Diabetes Qualifiers: Diabetes mellitus type: type 2 Diabetes mellitus complication status: with unspecified complications
--- NOTE | 2019-03-25 13:17 | Gastroenterology Consult Note ---
<Rajan Epps - Last Filed: 03/25/19 13:15> Date of Encounter: 03/25/19 Time of Encounter: 09:55 - Assessment and plan (1) Elevated LFTs Current Visit: Yes Status: Acute Assessment and plan: Hepatitis B antigen and core IgM positive. Hepatitis B quant PCR pending. RUQ US showed gallbladder sludge in gallbladder wall thickening area. Complete liver workup. On admission TB 2.1, AST 159, ALT 334, and alk p hos 330. Today TB 1.1, AST 323, ALT 287, alk phos 269. Bili is improving. LFTs elevated, likely secondary to Hep B. MRCP showed questionable 1-2 mm filling defects in the CBD which could be attributed to artifact or tiny stones-areas of nodular sludge, no CBD dilation noted. No indication for ERCP at this time. Likely not contributing. (2) Hepatitis B Current Visit: Yes Status: Acute Qualifiers: Viral hepatitis chronicity: unspecified Hepatic coma status: without hepatic coma Hepatitis delta agent presence: without delta-agent Qualified Code(s): B19.10 - Unspecified viral hepatitis B without hepatic coma - Time Spent With Patient Total time spent is greater than 50% in coordination of care (as documented) at patient's floor/unit and/or counseling patient: GI History of Present Illness - Data of Consult Patient: new to practice Consult date: 03/25/19 Requesting Physician: Aung Haynes MD - Consult Narrative Reason for consult: Elevated LFTs, Hepatitis B History of present illness: Mr. Salas is a 84 year old male with PMHx of Afib, CHF, CAD, DVT, DM, HLD, HTN, NV, renal disease who presented with hyperglycemia and right sided abdominal pain with no alleviating or aggravating factors. He denies fever, chills, chest pain, shortness of breath, nausea, vomiting, melena, hematochezia. He denies any alcohol or drug use. Right upper quadrant ultrasound showed gallbladder sludge in gallbladder wall thickening area and HIDA scan was negative. Patient declined surgery for his gallbladder. MRCP showed questionable 1-2 mm filling defects in the CBD which could be attributed to artifact or tiny stonesareas of nodular sludge, no CBD dilation noted. Procedures: None NSAIDs: None Anticoagulation: Eliquis Past Med Surg Social Fam HX - Past Medical History Medical history: atrial fibrillation, CHF, coronary artery disease, DVT, diabetes, hyperlipidemia, hypertension, myocardial infarction, peripheral artery disease, renal disease Psychiatric history: anxiety, depression - Past Surgical History Surgical History: angioplasty/stent, appendectomy, cholecystectomy, hip replacement, orthopedic, other Additional surgical history: plate in hip. 1 cardiac stent - Social History Smoking Status: Never smoker Smokeless Tobacco Status: Yes Alcohol use: none Drug use: none - Family History Mother Living Status: Father Living Status: - Gastrointestinal Gastrointestinal: Present: as per HPI - Constitutional Constitutional: as per HPI - EENT Eyes: as per HPI Ears: Present: as per HPI Nose, mouth and throat: Present: as per HPI - Cardiovascular Cardiovascular ROS: Present: as per HPI - Respiratory Respiratory IM: Present: as per HPI - Genitourinary Genitourinary: Present: Urinary frequency. Absent: change in color - Neurological ROS Neurological GI: Present: as per HPI - Hematologic/Lymphatic Hematologic/Lymphatic pediatric: Present: as per HPI - Musculoskeletal Musculoskeletal ROS GI: Present: as per HPI - Integumentary Integumentary GI: Present: as per HPI - Psychiatric ROS Psychiatric GI: Present: as per HPI - Endocrine Endocrine IM: Present: as per HPI - Constitutional Vitals: Temp Pulse Resp BP Pulse Ox 98.0 F 72 18 126/62 97 03/25/19 10:54 03/25/19 10:54 03/25/19 10:54 03/25/19 10:54 03/25/19 10:54 General appearance: Present: cooperative, A&O X 3, no acute distress, answers questions appropriately - Head Head exam: Present: atraumatic, normocephalic - Eye Eye exam: Present: normal appearance, sclera anicteric - ENT ENT exam: Present: mucous membranes moist - Neck Neck exam general surgery: Present: normal inspection, trachea midline - Respiratory Respiratory exam: Present: decreased breath sounds, CTAB - Cardiovascular Cardiovascular exam: Present: irregular rhythm - GI/Abdominal GI/Abdominal exam: Present: soft, no peritoneal signs. Absent: distended, firm, guarding, tenderness - Rectal Rectal exam: Present: deferred - Extremities Exam Extremities exam: Present: warm - Neurological Exam Neurological exam: Present: no focal deficits - Psychiatric Psychiatric exam: Present: normal affect, normal mood - Skin Skin exam: Present: dry, intact, normal color, warm Results - Labs CBC & Chem 7: 03/24/19 09:45 03/25/19 04:58 Labs: Last Result 03/25/19 04:58 Calcium 8.5 L Entire Visit 03/25/19 04:58 Total Bilirubin 1.1 H AST 323 H ALT 287 H - ABG ABG results: PT/INR, D-dimer PT 12.2 Seconds (9.4-12.1) H 03/21/19 06:13 - Impressions Impressions Echocardiogram 03/24/19 12:47 Impressions: LVEF 30-35%. Severe global and segmental left ventricular systolic dysfunction. Indeterminate diastolic function. Mildly dilated right ventricle with moderate right ventricular hypokinesis Severe biatrial enlargement. Mild mitral regurgitation. Unable to estimate RVSP due to lack of TR jet. Left Ventricular Wall Motion: Rest Echo Findings The mid inferior, basal inferior, mid anterior, basal anterior, basal inferior septal, basal anterior lateral, basal anterior septal and basal inferior lateral metz were hypokinetic. The apex, apical inferior, apical anterior, apical septal and apical lateral metz were akinetic. The mid inferior septal, mid anterior lateral, mid anterior septal and mid inferior lateral metz were not visualized. Findings: Study Quality * Technically sub-optimal due to poor echocardiographic windows. ECG Findings * Atrial fibrillation with BBB. * . Left Ventricle * LVEF 30-35%. Severe global and segmental left ventricular systolic dysfunction. * Mildly dilated left ventricle. * Severe global and segmental left ventricular systolic dysfunction. * Indeterminate diastolic function. * There is no LV thrombus. * Definity echo contrast was used. * Atypical septal motion consistent with bundle branch block. Right Ventricle * Mildly dilated right ventricle with moderate right ventricular hypokinesis * . Left Atrium * Severely dilated left atrium. Right Atrium * Severely dilated right atrium. Aortic Valve * Aortic valve not well visualized. * Moderately sclerotic aortic valve leaflets. * No aortic stenosis. * No aortic regurgitation. Mitral Valve * Mild mitral regurgitation. * Mild mitral annular calcification * No mitral stenosis. * Normal mitral valve structure. Tricuspid Valve * Trace tricuspid regurgitation. * No tricuspid stenosis. * Unable to estimate RVSP due to lack of TR jet. * Normal tricuspid valve structure. Aorta * Normally sized aortic root. Pericardium * The pericardium appears normal. IVC * The IVC is dilated. Consult Discharge Plan - Plan Referrals: NONE,PCP [Primary Care Provider] - <Gul,Raza - Last Filed: 03/25/19 14:30> Date of Encounter: 03/25/19 Time of Encounter: 13:00 - Time Spent With Patient Total time spent is greater than 50% in coordination of care (as documented) at patient's floor/unit and/or counseling patient: GI History of Present Illness - Data of Consult Requesting Physician: Aung Haynes MD - Consult Narrative History of present illness: Mr. Salas is a 84 year old male - Constitutional Vitals: Temp Pulse Resp BP Pulse Ox 98.0 F 72 18 126/62 97 03/25/19 10:54 03/25/19 10:54 03/25/19 10:54 03/25/19 10:54 03/25/19 10:54 Results - Labs CBC & Chem 7: 03/24/19 09:45 03/25/19 04:58 Labs: Last Result 03/25/19 04:58 Calcium 8.5 L Entire Visit 03/25/19 04:58 Total Bilirubin 1.1 H AST 323 H ALT 287 H - ABG ABG results: PT/INR, D-dimer PT 12.2 Seconds (9.4-12.1) H 03/21/19 06:13 - Impressions Impressions Echocardiogram 03/24/19 12:47 Impressions: LVEF 30-35%. Severe global and segmental left ventricular systolic dysfunction. Indeterminate diastolic function. Mildly dilated right ventricle with moderate right ventricular hypokinesis Severe biatrial enlargement. Mild mitral regurgitation. Unable to estimate RVSP due to lack of TR jet. Left Ventricular Wall Motion: Rest Echo Findings The mid inferior, basal inferior, mid anterior, basal anterior, basal inferior septal, basal anterior lateral, basal anterior septal and basal inferior lateral metz were hypokinetic. The apex, apical inferior, apical anterior, apical septal and apical lateral metz were akinetic. The mid inferior septal, mid anterior lateral, mid anterior septal and mid inferior lateral metz were not visualized. Findings: Study Quality * Technically sub-optimal due to poor echocardiographic windows. ECG Findings * Atrial fibrillation with BBB. * . Left Ventricle * LVEF 30-35%. Severe global and segmental left ventricular systolic dysfunction. * Mildly dilated left ventricle. * Severe global and segmental left ventricular systolic dysfunction. * Indeterminate diastolic function. * There is no LV thrombus. * Definity echo contrast was used. * Atypical septal motion consistent with bundle branch block. Right Ventricle * Mildly dilated right ventricle with moderate right ventricular hypokinesis * . Left Atrium * Severely dilated left atrium. Right Atrium * Severely dilated right atrium. Aortic Valve * Aortic valve not well visualized. * Moderately sclerotic aortic valve leaflets. * No aortic stenosis. * No aortic regurgitation. Mitral Valve * Mild mitral regurgitation. * Mild mitral annular calcification * No mitral stenosis. * Normal mitral valve structure. Tricuspid Valve * Trace tricuspid regurgitation. * No tricuspid stenosis. * Unable to estimate RVSP due to lack of TR jet. * Normal tricuspid valve structure. Aorta * Normally sized aortic root. Pericardium * The pericardium appears normal. IVC * The IVC is dilated. - Attending Attestation I have personally performed a face to face evaluation on this patient. I have reviewed and agree with the care plan. History and Exam by me shows: Patient seen denies abdominal pain. Sexually active. Examination: No jaundice abdomen is soft. Assessment: Patient with acute hepatitis with elevated LFTs. MRCP findings are nonspecific. Recommendation: Supportive care. If discharged patient will need to follow up with the GI/primary care as an outpatient with LFTs in few days
[2019-03-25] MEDS: traMADol 50 MG TABLET PO PRN (20:15)
[2019-03-26 07:35] LABS: Alanine Aminotransferase 331 Units/L (7-52); Albumin 2.6 g/dL (3.5-5.7); Albumin/Globulin Ratio 0.9 (1.1-2.2); Alkaline Phosphatase 260 Units/L (34-104); Aspartate Amino Transferase 417 Units/L (13-39); BUN/Creatinine Ratio 15 (6-26); Blood Urea Nitrogen 16 mg/dL (8-23); Calcium 8.2 mg/dL (8.6-10.3); Carbon Dioxide 28 mEq/L (23-29); Chloride 101 mEq/L (98-107); Globulin 2.8 g/dL (2.4-3.5); Glucose 48 mg/dL (70-105); Osmolality,Calculated 278 (280-300); Potassium 3.5 mEq/L (3.5-5.1); Sodium 135 mEq/L (136-145); Total Protein 5.4 g/dL (6.4-8.9); eGFR For Non-African Americans > 60 (> 60)
[2019-03-26] MEDS: Insulin LISPRO 300 UNITS/3 ML VIAL SQ SCH ×4 (08:47→14:07)
[2019-03-26] MEDS ORDERED: Metoprolol XL (24 HR) Succ 25 MG TAB.ER.24H PO SCH (09:00)
[2019-03-26] MEDS: Insulin DETEMIR 100 UNIT/ML X5UNITS SQ SCH (09:28)
[2019-03-26] MEDS: Furosemide 40 MG TABLET PO SCH (09:29)
[2019-03-26] MEDS: Finasteride 5 MG TABLET PO SCH (09:30)
[2019-03-26] MEDS: Apixaban 2.5 MG TABLET PO SCH (09:30)
[2019-03-26] MEDS: Aspirin Enteric Coated 81 MG Tablet PO SCH (09:30)
[2019-03-26 10:33] VITALS: BP 108/57
--- NOTE | 2019-03-26 11:21 | Discharge Summary ---
- NOTES TO OUTPATIENT PROVIDER Notes to Outpatient Provider: LFT in 5 days and follow-up with GI as an outpatient Orders not resulted at time of discharge: Pending orders 03/21/19 00:01 ECG 12 lead ECG [ECG] Stat 03/24/19 13:11 Hepatitis B Virus Quant PCR Stat 03/25/19 13:51 AFP Tumor Marker Non- Routine BOY IgG JUDI rflx IFA Routine Ceruloplasmin Routine F-Actin IgG Reflex Sm Muscle Routine Hepatitis Be Antibody Routine Hepatitis Be Antigen Routine MPO/PR3 (ANCA) Antibodies Routine Mitochondrial M2 Antibody, IgG Routine Date of Encounter: 03/26/19 Time of Encounter: 08:30 - Discharge Diagnosis (1) Elevated LFTs Priority: Primary Status: Acute (2) Symptomatic cholelithiasis Priority: Secondary Status: Acute (3) Acute kidney injury Priority: Secondary Status: Resolved (4) UTI (urinary tract infection) Priority: Secondary Status: Resolved Qualifiers: Urinary tract infection type: site unspecified Hematuria presence: without hematuria Qualified Code(s): N39.0 - Urinary tract infection, site not specified (5) Atrial fibrillation Priority: Secondary Status: Chronic Qualifiers: Atrial fibrillation type: paroxysmal Qualified Code(s): I48.0 - Paroxysmal atrial fibrillation (6) Systolic CHF, chronic Priority: Secondary Status: Chronic (7) Hypertension Priority: Secondary Status: Chronic Qualifiers: Hypertension type: essential hypertension Qualified Code(s): I10 - Essential (primary) hypertension (8) CAD (coronary artery disease) Priority: Secondary Status: Chronic Qualifiers: Coronary Disease-Associated Artery/Lesion type: [place] artery [place] vs. 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 Salas is a 84 year old male with history of systolic heart failure, CAD, afib on apixaban, CKD, HTN, who was admitted for generalized weakness in the setting of hyperglycemia and transaminitis. He was diagnosed with Acute Hep B, symptomatic cholelithiasis without cholecystitis, BETITO, and UTI. Clinically improved with IVF and supportive measure. Surgery was consulted and pt declined any surgical intervention for cholelithiasis. There was also a concern for questionable filling defect in CBD on MRI but GI deemed that it was not the contributing factor to his LFT derangement and ERCP was not warranted. Tbili improving although AST/ALTs were around 400s at the time of discharge. Tolerating diet well. AFter discussing with GI, he will be discharged with outpatient follow up and repeat LFT in 5 days time. Completed a course of abx for UTI while inpatient. Low dose bb was added in view of systolic heart failure and lasix dose was adjusted. Discharge discussed with: patient, nurse, social work, personnel consultant - Time Spent with Patient Total time spent providing and/or coordinating discharge services: 33 mins - Discharge Medications Prescriptions: New Furosemide [Lasix] 40 mg PO DAILY #30 tablet Metoprolol XL (24 HR) Succ [Toprol Xl] 12.5 mg PO DAILY #30 tab.er.24h Continued Tramadol HCl [Ultram] 50 mg PO BID PRN PRN Reason: Pain Tamsulosin [Flomax] 0.4 mg PO DAILY Finasteride [Proscar] 5 mg PO DAILY Ferrous Sulfate [Iron] 325 mg PO DAILY Citalopram [CeleXA] 20 mg PO DAILY Aspirin [Lo-Dose Aspirin EC] 81 mg PO DAILY Metoclopramide HCl 5 mg PO TID PRN PRN Reason: Nausea Insulin DETEMIR [Levemir] 10 unit SQ BID #50 [id number] Apixaban [Eliquis] 2.5 mg PO BID Insulin LISPRO [Admelog] 8 unit SQ TIDWM Polyethylene Glycol 3350 [MiraLAX] 17 gm PO DAILY PRN PRN Reason: Constipation LORazepam [Ativan] 0.5 mg PO Q4H PRN PRN Reason: Anxiety Discontinued Furosemide [Lasix] 40 mg PO BID Home Medications: Aspirin [Lo-Dose Aspirin EC] 81 mg PO DAILY 12/24/17 [History] Citalopram [CeleXA] 20 mg PO DAILY 12/24/17 [History] Ferrous Sulfate [Iron] 325 mg PO DAILY 12/24/17 [History] Finasteride [Proscar] 5 mg PO DAILY 12/24/17 [History] Tamsulosin [Flomax] 0.4 mg PO DAILY 12/24/17 [History] Tramadol HCl [Ultram] 50 mg PO BID PRN 12/24/17 [History] Metoclopramide HCl 5 mg PO TID PRN 03/02/18 [History] Insulin DETEMIR [Levemir] 10 unit SQ BID #50 [id number] 03/05/18 [Rx] Apixaban [Eliquis] 2.5 mg PO BID 01/18/19 [History] Insulin LISPRO [Admelog] 8 unit SQ TIDWM 01/18/19 [History] Polyethylene Glycol 3350 [MiraLAX] 17 gm PO DAILY PRN 02/19/19 [History] LORazepam [Ativan] 0.5 mg PO Q4H PRN 03/21/19 [History] Furosemide [Lasix] 40 mg PO DAILY #30 tablet 03/26/19 [Rx] Metoprolol XL (24 HR) Succ [Toprol Xl] 12.5 mg PO DAILY #30 tab.er.24h 03/26/19 [Rx] Allergies/Adverse Reactions: Allergy/AdvReac Type Severity Reaction Status Date / Time clopidogrel [From Plavix] Allergy See Verified 03/21/19 15:51 Comments phenobarbital Allergy See Verified 03/21/19 15:51 Comments Date of admission: 03/21/19 02:46 Primary care physician: PCP NONE Consults: 03/21/19 03:44 Consult to Nutrition [CONS] Routine Comment: Consulting Provider: NUTRITION Reason for Dietary Consult: MST Score Consult to Extra Gang Supervisor [CONS] Routine Reason for SW Consult: pt potential need of follow up care in ecf, unable to care for self, unsure of care at home 03/22/19 09:36 Consult to Gastroenterology [CONS] Routine Consulting Provider: [facility] [place] Reason for Consult: elevated LFT positive hep B Call Completed: Yes 03/22/19 09:42 Consult to Surgery [CONS] Routine Consulting Provider: Acute Care Surgery Reason for Consult: acute cholecystitis, and gallstone Call Completed: Yes 03/25/19 09:10 Consult to Speech Therapy [CONS] Routine Comment: Evaluate, develop and implement POC Reason for Consult: Possible aspiration during breakfast, pt states he is having a difficult time swallowing. Call Completed: Yes - Constitutional Vitals: Temp Pulse Resp BP Pulse Ox 97.6 F 70 16 108/57 96 03/26/19 10:28 03/26/19 10:28 03/26/19 10:28 03/26/19 10:28 03/26/19 10:28 General appearance: Present: A&O X 2, no acute distress Exam: Vitals: reviewed General: Alert and oriented x3. In no distress Eyes: No scleral icterus Cardiovascular: Irregularly irregular, normal S1 & S2, no rubs, murmurs or gallops. Lungs: CTA b/l, no wheezes or crackles. Abdomen: Soft, non-tender, Combs's -ve Extremities: No deformity, no edema or tenderness, no joint swelling or clubbing. Neurological: No focal neurological deficits - Patient Status Disposition: Hospice - Medical Facility Condition: Undetermined Overall status at discharge: patient is progressing back to baseline - Ambulatory Orders Ambulatory Orders: Hepatic Panel [CHEM] Time Frame: 5 Days, Facility: [facility], Location: Lab - Discharge Instructions Instructions: Diabetes Mellitus Type 2 in Adults (DC), Urinary Tract Infection in Men (DC) Follow Up With: NONE,PCP [Primary Care Provider] - Raza Rios MD [Partnered Physician] - - Diet and Activity Activity: resume usual activities as tolerated Diet: low salt diet
--- NOTE | 2019-03-26 11:23 | Event Note ---
Date of Encounter: 03/26/19 Time of Encounter: 11:21 Ok to discharge patient. Total bili ok, AST and ALT remain elevated, alk phos improved. Follow up as outpatient on Monday or Monday. Check hepatic panel prior to office visit.
--- NOTE | 2019-03-26 11:25 | Physician Discharge Referral ---
Home Health/Hosp Referral Info Transfer to: Hospice Provider in Charge Post Discharge: Framing Carpenter - Diagnosis (1) Elevated LFTs Priority: Primary Status: Acute (2) Symptomatic cholelithiasis Priority: Secondary Status: Acute (3) Acute kidney injury Priority: Secondary Status: Resolved (4) UTI (urinary tract infection) Priority: Secondary Status: Resolved (5) Atrial fibrillation Priority: Secondary Status: Chronic (6) Systolic CHF, chronic Priority: Secondary Status: Chronic (7) Hypertension Priority: Secondary Status: Chronic (8) CAD (coronary artery disease) Priority: Secondary Status: Chronic (9) Diabetes Priority: Secondary Status: Chronic - Respiratory Orders Smoking Cessation: Smoking cessation has been advised. For more information, call the [place] Tobacco Quit Line at 5-795-HFYA-NOW. - Diet/Nutrition Diet/Nutrition Orders: Cardiac - Services Needed Following services are medically necessary services: Nursing, Physical Therapy, Occupational Therapy - Transfer Medications Prescriptions: Furosemide [Lasix] 40 mg PO DAILY #30 tablet Metoprolol XL (24 HR) Succ [Toprol Xl] 12.5 mg PO DAILY #30 tab.er.24h Home Medications: Aspirin [Lo-Dose Aspirin EC] 81 mg PO DAILY 12/24/17 [History] Citalopram [CeleXA] 20 mg PO DAILY 12/24/17 [History] Ferrous Sulfate [Iron] 325 mg PO DAILY 12/24/17 [History] Finasteride [Proscar] 5 mg PO DAILY 12/24/17 [History] Tamsulosin [Flomax] 0.4 mg PO DAILY 12/24/17 [History] Tramadol HCl [Ultram] 50 mg PO BID PRN 12/24/17 [History] Metoclopramide HCl 5 mg PO TID PRN 03/02/18 [History] Insulin DETEMIR [Levemir] 10 unit SQ BID #50 [id number] 03/05/18 [Rx] Apixaban [Eliquis] 2.5 mg PO BID 01/18/19 [History] Insulin LISPRO [Admelog] 8 unit SQ TIDWM 01/18/19 [History] Polyethylene Glycol 3350 [MiraLAX] 17 gm PO DAILY PRN 02/19/19 [History] LORazepam [Ativan] 0.5 mg PO Q4H PRN 03/21/19 [History] Furosemide [Lasix] 40 mg PO DAILY #30 tablet 03/26/19 [Rx] Metoprolol XL (24 HR) Succ [Toprol Xl] 12.5 mg PO DAILY #30 tab.er.24h 03/26/19 [Rx] Allergies/Adverse Reactions: Allergy/AdvReac Type Severity Reaction Status Date / Time clopidogrel [From Plavix] Allergy See Verified 03/21/19 15:51 Comments phenobarbital Allergy See Verified 03/21/19 15:51 Comments Certification: Further, I certify that my clinical findings support that this patient is homebound (i.e. absences from home require considerable and taxing effort and are for medical reasons or mandaen services or infrequently or short duration when for other reasons) because: Homebound Reason: Patient requires assistance of a person or device to safely leave home, Leaving home requires considerable and taxing effort due to condition Attestation: My signature below is to certify that this patient is under my care and that I, or nurse practitioner, or a physician's assistant farm operations manager working with me, has a [id number] encounter with this patient.
[2019-03-26] MEDS ORDERED: Insulin LISPRO 300 UNITS/3 ML VIAL SQ SCH (17:00)
[2019-03-27 02:50] LABS: HBV Quant Log by PCR 8.73 log IU/mL
[2019-03-27 10:43] LABS: HBV Quant Interpretation DETECTED (Not Detected)
[2019-03-27 15:07] LABS: AFP Tumor Marker Non-Pregnant 9 ng/mL (0-9)
[2019-03-28 09:49] LABS: ANA IgG by ELISA DETECTED (None Detected)
[2019-03-28 10:08] LABS: F-Actin (sm muscle) Ab IgG 19 Units (0-19); Hepatitis Be Antibody NEGATIVE (Negative); Myeloperoxidase Ab 1 AU/mL (0-19); Serine Protease-3 Antibody 59 AU/mL (0-19)
[2019-03-28 15:15] LABS: Hepatitis Be Antigen POSITIVE (Negative)
[2019-03-29 19:29] LABS: ANA HEp-2 IgG IFA DETECTED (<1:80); Anti Nuclear Ab Pattern SPECKLED
== END 2019-03-26 15:35 | disposition hospice, inpatient (51) ==
LOC: 2ANU 23:49 → EMEROOARM 23:49 → SUATTDRO 03-21 02:46 → 2ANU 03-21 03:14 → SUATTDRO 03-21 06:02
PROVIDERS: ADMIT Internal Medicine; ATTEND Internal Medicine